=== PATIENT | male | born 1990 | race Caucasian/White ===

== ENCOUNTER 2017-02-18 16:33 | Emergency (ER) | payer MEDICARE, MEDICAID ==
[2017-02-18 16:54] VITALS: BP 166/92
--- NOTE | 2017-02-18 17:08 | UC ---
Respiratory Complaint HPI - HPI Summary HPI Summary: The patient comes in today for: 1. "I want an HIV test, Rx for my left bunion, and cough/dyspnea." Onset: Bunion: 4 years ago. Cough: 1 month. Palliative/provocative: ODETTE bandage helps bunion. Cough syrup helps the cough. Quality: Tearing sensation of the bunion. No pain with the cough. Region: Left foot and lungs. Severity: 8/10 though he appears much less--more like 4/10 Time: Comes and goes. Associated symptoms: Fevers: None. Cough production: None. He does not have any chest pain at this time. Dyspnea at this time--none. Rhinitis: None. * - History of Current Complaint Chief Complaint: UCGeneralIllness Stated Complaint: RESP COMPLAINT Time Seen by Provider: 02/18/17 16:49 Hx Obtained From: Patient - Allergies/Home Medications Allergies/Adverse Reactions: Allergies Allergy/AdvReac Type Severity Reaction Status Date / Time Doxycycline Allergy Intermediate Rash Verified 02/18/17 16:55 Home Medications: Home Medications Lurasidone HCl [Latuda] 60 mg PO DAILY 02/18/17 [History Confirmed 02/18/17] PMH/Surg Hx/FS Hx/Imm Hx Previously Healthy: No - Schizoaffective disorder. Endocrine History Of: Denies: Diabetes, Thyroid Disease, Hyperthyroidism, Hypothyroidism, Dyslipidemia Cardiovascular History Of: Denies: Cardiac Disorders, Hypertension, Pacemaker/ICD, Myocardial Infarction , Congestive Heart Failure, Atrial Fibrillation, Deep Vein Thrombosis, Bleeding Disorders Respiratory History Of: Denies: COPD, Asthma, Bronchitis, Pneumonia, Pulmonary Embolism GI/ History Of: Denies: Gastroesophageal Reflux, Ulcer, Gastrointestinal Bleed, Gall Bladder Disease, Kidney Stones, Diverticulitis, Renal Disease, Urosepsis Neurological History Of: Denies: TIA, CVA, Dementia, Seizures, Migraine Psychological History Of: Reports: Anxiety, Depression, Schizophrenia Denies: Bipolar Disorder, Post Traumatic Stress Disorder Cancer History Of: Denies: Lung Cancer, Colorectal Cancer, Breast Cancer, Prostate Cancer, Cervical Cancer Other History Of: Negative For: HIV, Hepatitis B, Hepatitis C, Anticoagulant Therapy - Surgical History Surgical History: Yes Surgery Procedure, Year, and Place: LEFT FOOT LESION REMOVED - Family History Known Family History: Positive: Hypertension Negative: Cardiac Disease - Social History Occupation: Employed Full-time Alcohol Use: Weekly Substance Use Type: None, Other Smoking Status (MU): Heavy Every Day Tobacco Smoker Type: Smokeless Tobacco Length of Time of Smoking/Using Tobacco: 5 years Have You Smoked in the Last Year: Yes Review of Systems Constitutional: Negative Skin: Negative Eyes: Negative ENT: Negative Respiratory: Cough Cardiovascular: Negative Gastrointestinal: Negative Genitourinary: Negative All Other Systems Reviewed And Are Negative: Yes Physical Exam Triage Information Reviewed: Yes Appearance: Well-Appearing, No Pain Distress, Well-Nourished Vital Signs: Initial Vital Signs Temp 97.1 F 02/18/17 16:46 Pulse 94 02/18/17 16:46 Resp 20 02/18/17 16:46 BP 166/92 02/18/17 16:46 Pulse Ox 97 02/18/17 16:46 Vital Signs Reviewed: Yes Eyes: Positive: Conjunctiva Clear. Negative: Discharge ENT: Positive: Hearing grossly normal. Negative: Pharyngeal erythema, Nasal congestion, Nasal drainage, TM bulging, TM dull, TM red, Tonsillar swelling, Tonsillar exudate Dental: Negative: Gross Decay/Caries @, Dental Fracture @ Neck: Positive: Supple, Nontender, No Lymphadenopathy. Negative: Nuchal Rigidity Respiratory: Positive: Lungs clear, No respiratory distress, No accessory muscle use. Negative: Crackles, Wheezing Cardiovascular: Positive: RRR, No Murmur Abdomen Description: Positive: Nontender, No Organomegaly, Soft. Negative: Distended, Guarding Musculoskeletal: Positive: Strength Intact, ROM Intact, No Edema, Other: - The left foot showed no signs of redness, tenderness or edema to exam. There was no hypertrophy of the MP joint of the first toe. Neurological: Positive: Alert, Muscle Tone Normal Psychological: Positive: Age Appropriate Behavior, Consolable Skin: Negative: rashes, breakdown UC Diagnostic Evaluation - Laboratory O2 Sat by Pulse Oximetry: 97 Respiratory Course/Dx - Course Course Of Treatment: Patient was told of his treatment options. His health insurance, he thinks, will cover Robitussin with codeine, but the codeine interacts with his psych medications. He was told this and at this time, he does not want to try other medications for his cough. He states that Tylenol with codeine helped his foot pain, but he was reminded that the codeine of Tylenol #3 is the same as with his cough medications and had adverse drug interactions. He states that he tolerates the ibuprofen and wanted to try that. He was told that this may increase his lithium level and he should use the least amount of it as needed. And if he has any problems, to stop it and see his psych provider. He said that without the codeine, he did not want any medications for his cough. - Differential Dx/Diagnosis Provider Diagnoses: Foot pain (resolved at this time). Cough (resolved at this time). HiV testing request. Discharge - Discharge Plan Condition: Stable Disposition: HOME Patient Education Materials: Arthralgia (ED) Referrals: Fabian Mesa MD [Medical Doctor] - 1 Week (Please see your primary care provider next week to see how well you are doing. If you get worse, please be seen sooner.)
--- NOTE | 2017-02-19 18:43 | UC ---
Progress - Progress Note Progress Note: A nurse gives me a note dated 02-19-17 stating that the patient wants Tylenol #3 for reasons that are not stated. He was seen yesterday and was complaining of a bunion which was non-tender and a cough which he did not have when I was in the room with him. IT is not clear why from this note why he wants the Tylenol #3 and the codeine interacts adversely with his psych medications. If he is having problems with pain control, he will need to come back in to be re-evaluated as he did not have pain problems last night.
== END 2017-02-18 17:39 | disposition home or self-care (01) ==
LOC: UCEAST 16:33
DX: R05 Cough (principal); M79.672 Pain in left foot; F41.9 Anxiety disorder, unspecified; F32.9 Major depressive disorder, single episode, unspecified; F20.9 Schizophrenia, unspecified; Z88.1 Allergy status to other antibiotic agents; F17.210 Nicotine dependence, cigarettes, uncomplicated
CPT/HCPCS: 99201; G0463

== ENCOUNTER 2017-10-25 15:30 | Inpatient (IN) | payer MEDICARE, MEDICAID ==
[2017-10-25 16:14] LABS: ABS Basophils 0 10^3/ul (0-0.2); ABS Eosinophils 0.1 10^3/ul (0-0.6); ABS Lymphocytes 1.5 10^3/ul (1.0-4.8); ABS Monocytes 0.5 10^3/ul (0-0.8); ABS Neutrophils 4.1 10^3/ul (1.5-7.7); ABS Nucleated RBC 0 10^3/ul; Hematocrit 43 % (42-52); Hemoglobin 15.6 g/dl (14.0-18.0); Lymphocyte % 24.3 % (25-47); Mean Corpuscular HGB Conc 36 g/dl (31-36); Mean Corpuscular Hemoglobin 32 pg (27-31); Mean Corpuscular Volume 89 fL (80-94); Mean Platelet Volume 8 um3 (7.4-10.4); Nucleated Red Blood Cells % 0.1; Platelet Count 289 10^3/ul (150-450); Red Blood Count 4.81 10^6/ul (4.0-5.4); Red Cell Distribution Width 12 % (10.5-15); White Blood Count 6.2 10^3/ul (3.5-10.8)
--- NOTE | 2017-10-25 17:47 | ED ---
Psychiatric Complaint - HPI Summary HPI Summary: Patient here with acute on chronic mood disorder. He has bipolar disorder and schizoaffective disorder for which Zyprexa. Follows w/ Dr. Power through [facility]. No change in meds as of late. He's been feeling "unsafe" over the past few months - reports this started around July 2017. He does admit he feels worse in the winter months in general - has not had his vitamin D level checked that he is aware of nor does he take a supplement. He currently lives alone however does visit his parents frequently - they all share a dog together. 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 Admits he was worse during school shut down over recent break due to lack of interaction and daily structure/ purpose. Denies SI or HI and no visual or auditory hallucinations- simply reports he doesn't feel he can trust anyone. He does admit to substance abuse - his drug of choice is nicotine. Currently smokes 10 cigarettes per day. Denies any other substance abuse. Patient reports no knows he is here at this time and he would like to keep it that way until he is ready to call his parents. - History Of Current Complaint Chief Complaint: EDMentalHealth Time Seen by Provider: 10/25/17 15:51 Hx Obtained From: Patient - Allergies/Home Medications Allergies/Adverse Reactions: Allergies Allergy/AdvReac Type Severity Reaction Status Date / Time Doxycycline Allergy Intermediate Rash Verified 06/29/17 13:24 Home Medications: Home Medications FLUoxetine CAP* [PROzac CAP*] 10 mg PO DAILY 10/25/17 [History Confirmed ] OLANzapine TAB* [Zyprexa 10 MG TAB*] 20 mg PO DAILY 10/25/17 [History Confirmed 10/25/17] Topiramate TAB(*) [Topamax 25 MG tab] 25 mg PO BID 10/25/17 [History Confirmed 10/25/17] Zolpidem TAB* [Ambien TAB*] 10 mg PO BEDTIME PRN 10/25/17 [History Confirmed ] clonazePAM TAB(*) [KlonoPIN TAB(*)] 1 mg PO BEDTIME PRN 10/25/17 [History Confirmed 10/25/17] PMH/Surg Hx/FS Hx/Imm Hx Previously Healthy: Yes Endocrine/Hematology History: Denies: Hx Anticoagulant Therapy, Hx Diabetes, Hx Thyroid Disease Cardiovascular History: Denies: Hx Congestive Heart Failure, Hx Deep Vein Thrombosis, Hx Hypertension , Hx Myocardial Infarction, Hx Pacemaker/ICD Respiratory History: Reports: Hx Seasonal Allergies Denies: Hx Asthma, Hx Chronic Obstructive Pulmonary Disease (COPD), Hx Lung Cancer, Hx Pneumonia, Hx Pulmonary Embolism GI History: Denies: Hx Gall Bladder Disease, Hx Gastrointestinal Bleed, Hx Ulcer, Hx Urosepsis History: Denies: Hx Dialysis, Hx Kidney Stones, Hx Renal Disease Musculoskeletal History: Reports: Hx Orthopedic Injury - Left Foot, Other Musculoskeletal History Sensory History: Reports: Hx Contacts or Glasses Denies: Hx Hearing Aid Opthamlomology History: Reports: Hx Contacts or Glasses Neurological History: Denies: Hx Dementia, Hx Migraine, Hx Seizures, Hx Transient Ischemic Attacks (TIA) Psychiatric History: Reports: Hx Anxiety, Hx Depression, Hx Community Mental Health Tx, Hx Schizophrenia, Hx Bipolar Disorder Denies: Hx Panic Disorder, Hx of Violent Episodes Against Others - Surgical History Surgery Procedure, Year, and Place: LEFT FOOT LESION REMOVED Hx Anesthesia Reactions: No Infectious Disease History: No Infectious Disease History: Denies: Hx Clostridium Difficile, Hx Hepatitis, Hx Human Immunodeficiency Virus (HIV), Hx of Known/Suspected MRSA, Hx Shingles, Hx Tuberculosis, Hx Known/ Suspected VRE, Hx Known/Suspected VRSA, History Other Infectious Disease, Traveled Outside the [place] in Last 30 Days - Family History Known Family History: Positive: Hypertension Negative: Cardiac Disease - Social History Occupation: Employed Full-time Lives: Alone Alcohol Use: None Substance Use Type: Reports: Marijuana - does not comment on this today Smoking Status (MU): Current Every Day Smoker Type: Smokeless Tobacco Amount Used/How Often: 10 cigs per day Length of Time of Smoking/Using Tobacco: 5 years Have You Smoked in the Last Year: Yes Review of Systems Constitutional: Negative Eyes: Negative ENT: Negative Cardiovascular: Negative Respiratory: Negative Gastrointestinal: Negative Positive: no symptoms reported Musculoskeletal: Negative Skin: Negative Neurological: Negative Psychological: Other - "unsafe" - no SI/HI All Other Systems Reviewed And Are Negative: Yes Physical Exam Triage Information Reviewed: Yes Vital Signs On Initial Exam: Initial Vitals Temp Pulse Resp BP Pulse Ox 98.4 F 134 18 158/89 98 10/25/17 15:33 10/25/17 15:33 10/25/17 15:33 10/25/17 15:33 10/25/17 15:33 Vital Signs Reviewed: Yes Appearance: Positive: Well-Appearing, No Pain Distress, Obese Skin: Positive: Warm, Skin Color Reflects Adequate Perfusion, Dry Head/Face: Positive: Normal Head/Face Inspection Eyes: Positive: Normal, EOMI, ANTONIO, Conjunctiva Clear ENT: Positive: Normal ENT inspection, Hearing grossly normal. Negative: Pharynx normal - oral mucosa dry, Nasal congestion Neck: Positive: Supple Respiratory/Lung Sounds: Positive: Clear to Auscultation, Breath Sounds Present Cardiovascular: Positive: Normal, RRR, S1, S2 Abdomen Description: Positive: Nontender, Soft Bowel Sounds: Positive: Present Musculoskeletal: Positive: Normal, Strength/ROM Intact Neurological: Positive: Normal, Sensory/Motor Intact, Alert, Oriented to Person Place, Time, CN Intact II-III Psychiatric: Positive: Other - Low mood, flat affect - denies SI HI Diagnostics - Vital Signs Vital Signs Temp Pulse Resp BP Pulse Ox 10/25/17 15:33 98.4 F 134 18 158/89 98 - Laboratory Lab Results: Lab Results 10/25/17 10/25/17 Range/Units 16:00 16:00 WBC 6.2 (3.5-10.8) 10^3/ul RBC 4.81 (4.0-5.4) 10^6/ul Hgb 15.6 (14.0-18.0) g/dl Hct 43 (42-52) % MCV 89 (80-94) fL MCH 32 H (27-31) pg MCHC 36 (31-36) g/dl RDW 12 (10.5-15) % Plt Count 289 (150-450) 10^3/ul MPV 8 (7.4-10.4) um3 Neut % (Auto) 66.2 (38-83) % Lymph % (Auto) 24.3 L (25-47) % [place] % (Auto) 8.1 (1-9) % Eos % (Auto) 1.0 (0-6) % Baso % (Auto) 0.4 (0-2) % Absolute Neuts (auto) 4.1 (1.5-7.7) 10^3/ul Absolute Lymphs (auto) 1.5 (1.0-4.8) 10^3/ul Absolute Monos (auto) 0.5 (0-0.8) 10^3/ul Absolute Eos (auto) 0.1 (0-0.6) 10^3/ul Absolute Basos (auto) 0 (0-0.2) 10^3/ul Absolute Nucleated RBC 0 10^3/ul Nucleated RBC % 0.1 Sodium 139 (133-145) mmol/L Potassium 3.6 (3.5-5.0) mmol/L Chloride 107 (101-111) mmol/L Carbon Dioxide 21 L (22-32) mmol/L Anion Gap 11 (2-11) mmol/L BUN 10 (6-24) mg/dL Creatinine 1.03 (0.67-1.17) mg/dL Est GFR ( Amer) 110.6 (>60) Est GFR (Non-Af Amer) 86.0 (>60) BUN/Creatinine Ratio 9.7 (8-20) Glucose 146 H (70-100) mg/dL Calcium 10.1 (8.6-10.3) mg/dL Total Bilirubin 0.40 (0.2-1.0) mg/dL AST 25 (13-39) U/L ALT 42 (7-52) U/L Alkaline Phosphatase 90 (34-104) U/L Total Protein 7.6 (6.4-8.9) g/dL Albumin 4.6 (3.2-5.2) g/dL Globulin 3.0 (2-4) g/dL Albumin/Globulin Ratio 1.5 (1-3) TSH 1.37 (0.34-5.60) mcIU/mL Salicylates < 2.50 (<30) mg/dL Acetaminophen < 15 mcg/mL Serum Alcohol < 10 (<10) mg/dL Result Diagrams: 10/25/17 16:00 10/25/17 16:00 Lab Statement: Any lab studies that have been ordered have been reviewed, and results considered in the medical decision making process. Course/Dx - Course Course Of Treatment: Patient presents with acute on chronic mood disorder w/o SI /HI. Labs are unremarkable for acute pathology triggering these symptoms. He is medically cleared for mental health evaluation. UPDATE: WILL BE ADMITTED TO [facility]. Pt in stable condition at time of transition. NOTE: Vitamin D is lower end of normal. Pt may benefit from supplement to replace this level and follow- up with labs. This may be appropriate as a routine tx for him during the winter months moving forward, but labs would best indicate his need. - Differential Dx/Clinical Impression Provider Diagnosis: Schizoaffective disorder, Bipolar disorder, Vitamin D deficiency Discharge - Discharge Plan Condition: Stable [place] [place] Materials: Vitamin D Deficiency (ED)
[2017-10-25 18:46] LABS: Urine Appearance Clear; Urine Blood 1+ (Negative); Urine Color Yellow; Urine Ketones Negative (Negative); Urine Protein Negative (Negative); Urine Specific Gravity 1.006 (1.010-1.030); Urine Urobilinogen Negative (Negative)
[2017-10-25] MEDS ORDERED: Ibuprofen TAB* 600 MG PO PRN (21:00)
[2017-10-25] MEDS ORDERED: Mouth Piece, Nicotine* 1 EACH CARTRIDGE INH ONE (23:00)
[2017-10-25] MEDS ORDERED: Nicotine GUM* 2 MG PO PRN (23:27)
[2017-10-25] MEDS ORDERED: Acetaminophen TAB* 325 MG PO PRN (23:27)
[2017-10-25] MEDS ORDERED: Al Hydrox/Mg Hydrox/Simet LIQ* 30 ML UDC PO PRN (23:27)
[2017-10-25] MEDS ORDERED: traZODone TAB* 50 MG TAB PO PRN (23:30)
[2017-10-26] MEDS: OLANzapine TAB* 10 MG PO SCH ×2 (03:15→20:16)
[2017-10-26] MEDS: Topiramate TAB(*) 25 MG PO SCH ×3 (03:16→20:16)
[2017-10-26] MEDS: Vitamin THERAPEUTIC TAB PO SCH (08:31)
--- NOTE | 2017-10-26 12:55 | PN ---
[facility]: Group Therapy Note - Service Type Service Type: [id number] Group Psychotherapy - Cognitive Behavioral Group Therapy ( CBT):Patient was attentive and participatory in CBT programming this morning, and remained in good behavioral control. Patient expressed positive insights regarding relevant treatment interventions and goals.
[2017-10-26] MEDS: lamoTRIgine TAB(*) 25 MG PO SCH (13:10)
[2017-10-26] MEDS: Nicotine Inhaler* 10 MG AMP INH PRN ×2 (13:13→20:17)
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
[2017-10-27] MEDS: lamoTRIgine TAB(*) 25 MG PO SCH (08:56)
[2017-10-27] MEDS: Vitamin THERAPEUTIC TAB PO SCH (08:56)
[2017-10-27] MEDS: Nicotine Inhaler* 10 MG AMP INH PRN ×2 (08:57→15:53)
[2017-10-27] MEDS: Topiramate TAB(*) 25 MG PO SCH ×2 (08:57→20:25)
--- NOTE | 2017-10-27 14:10 | PN ---
Subjective - Subjective Date of Service: 10/27/17 Service Type: 35602 Hosp care 15 min low complexity Subjective: Jas reports that he is tolerating the addition of lamotrigine well and denies side effects. He still appears to be isolative with some difficulty communicating his thoughts in a relatable fashion. He denies SI or HI and does request discharge tomorrow, stating that he feels bad for missing work. He is interested in substance abuse follow up, in addition to f/u in the community following discharge. Objective - Appearance Appearance: Obese Dysmorphic Features: No Hygiene: Normal Grooming: Well Kept - Behavior Psychomotor Activities: Normal Exhibits Abnormal Movement: No - Attitude and Relatedness Attitude and Relatedness: Withdrawn Eye Contact: Fair - Speech Quality: Unpressured Latencies: Normal Quantity: Terse - Mood Patient's Decription of Mood: "Okay" - Affect Observed Affect: Unvariable Affect Consistent with: Euthymia - Thought Process Patient's Thought Process: Coherent Thought Content: No Passive Wish, No Suicidal Planning, No Homicidal Ideation, No Paranoid Ideation - Sensorium Experiencing Hallucinations: No, Sensorium is Clear Type of Hallucinations: Visual: No, Auditory: No, Command: No - Level of Consciousness Level of Consciousness: Alert Orientation: Yes Intact, Yes Orientated to Time, Yes Orientated to Place, Yes Orientated to Person - Impulse Control Impulse Control: Tenuous - Insight and Judgement Insight and Judgement: Fair - Group Participation Particating in Group Activities: Yes - Medication Management Medication Management Adherence: Yes Assessment - Assessment Merits Inpatient Hospitalization: Consolidate Improvements, Pending Safe DC Plan Inpatient DSM-IV Dx: Schizoaffective DO, Bipolar Type Clinical Impression: 27 y.o. single, white male with a history of schizoaffective DO, Bipolar type and polysubstance use disorder (cocaine, ketamine, dextromethorphan, cannabis, alcohol, opioids) in brief remission who is self-referred for voluntary admission secondary to increasing symptoms of bipolar depression and vague SI. Plan - Plan Treatment Plan: Name: JAS LAMBERT Birthdate: 1990 [id number] The patient is on olanzapine 10mg PO BID and topiramate 25mg PO BID. We have discontinued fluoxetine in favor of a trial of lamotrigine 50mg PO qday, which he is tolerating well. The patient continues to deny SI and is requesting d/c tomorrow (10/28). Continued Medication Management: Different Medication Medications: Current Medications Acetaminophen (Tylenol Tab*) 650 mg PO Q4H PRN PRN Reason: PAIN or TEMP > 101 F Al Hydrox/Mg Hydrox/Simethicone (Maalox Plus*) 30 ml PO Q4H PRN PRN Reason: INDIGESTION Ibuprofen (Motrin Tab*) 600 mg PO Q6H PRN PRN Reason: PAIN Lamotrigine (Lamictal Tab(*)) 50 mg PO DAILY [facility] Last Admin: 10/27/17 08:56 Dose: 50 mg Multivitamins (Theragran Tab*) 1 tab PO DAILY [facility] Last Admin: 10/27/17 08:56 Dose: 1 tab Nicotine (Nicotine Inhaler*) 10 mg INH Q2H PRN PRN Reason: CRAVING Last Admin: 10/27/17 08:57 Dose: 10 mg Nicotine Polacrilex (Nicotine Gum*) 2 mg PO Q2H PRN PRN Reason: CRAVING Last Admin: 10/26/17 13:13 Dose: 2 mg Topiramate (Topamax(*)) 25 mg PO BID [facility] Last Admin: 10/27/17 08:57 Dose: 25 mg Trazodone HCl (Desyrel Tab*) 50 mg PO BEDTIME PRN PRN Reason: INSOMNIA - Discharge Plan Discharge Plan: Outpatient Follow Up Outpatient Program: [facility] Lab Results - Lab Results Lab Results: 10/27/17 10/27/17 09:24 09:24 Hemoglobin A1c 5.4 Triglycerides 162 Cholesterol 197 LDL Cholesterol 137 HDL Cholesterol 27.6
[2017-10-27] MEDS: OLANzapine TAB* 10 MG PO SCH (20:25)
[2017-10-28] MEDS: OLANzapine TAB* 10 MG PO SCH (08:18)
[2017-10-28] MEDS: lamoTRIgine TAB(*) 25 MG PO SCH (08:18)
[2017-10-28] MEDS: Vitamin THERAPEUTIC TAB PO SCH (08:18)
[2017-10-28] MEDS: Topiramate TAB(*) 25 MG PO SCH (08:18)
[2017-10-28 08:31] VITALS: BP 105/49
[2017-10-28] MEDS: Nicotine Inhaler* 10 MG AMP INH PRN (10:13)
--- NOTE | 2017-10-28 11:30 | PN ---
[facility]: Group Therapy Note - Service Type Service Type: 71352 Group Psychotherapy - Cognitive Behavioral Group Therapy ( CBT):Patient was attentive and participatory in CBT programming this morning, and remained in good behavioral control. Patient expressed positive insights regarding relevant treatment interventions and goals.
--- NOTE | 2017-10-28 23:22 | DS ---
CC: Dr. Debora Power, [facility] * DISCHARGE SUMMARY: DATE OF ADMISSION: 10/25/17 DATE OF DISCHARGE: 10/28/17 DISCHARGE DIAGNOSES: Are as follows: Empire I: Schizoaffective disorder, bipolar type; polysubstance use disorder in brief remission (cocaine, alcohol, ketamine, cannabis, dextromethorphan, LSD, and opioids). Empire II: Deferred. Empire III: None. Empire IV: Moderate primary support stressors. Empire V: At the time of admission was 40 and at the time of discharge is 60. CONDITION AT THE TIME OF DISCHARGE: Improved. The patient is euthymic. He has been going to groups, more social with peers, more communicative. He is tolerating the introduction of lamotrigine well and appears to be less depressed. He is agreeable with continuing this on an outpatient basis and continuing to follow up in the community at [facility]. The patient is also recognizing that substances of abuse are playing a negative role in his life and he is willing to seek assessment at the [facility] here in [facility]. The patient has been safe on all checks. He has denied suicidal ideations throughout this hospitalization. 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 We have given him an employment note due to his absence while hospitalized. I have spoken with his mother, Khurram, who is in agreement with the discharge plan. MENTAL STATUS EXAMINATION AT THE TIME OF DISCHARGE: The patient is an overweight white male who is clean and well-groomed with good posture, fairly good eye contact. He is easy to establish a rapport with. Mood is euthymic with somewhat flattened affect. Speech has a normal rate, tone and volume. Thought process is linear and goal directed. Thought content is significant for his desire to be discharged from the hospital and return to work. He is denying suicidal or homicidal ideations. He denies auditory or visual hallucinations. There is no current evidence of psychotic thinking. Insight and judgment are fair given his willingness to follow up not only with mental health, but also substance abuse treatment in the community. Cognitively, he is awake and alert with what would appear to be an average intellect. LABORATORY DATA: The patient's metabolic studies were gathered on 10/27/17. Hemoglobin A1c is 5.4, cholesterol 197, triglycerides 162, LDL is 137, and HDL is 27.6. DISCHARGE INSTRUCTIONS TO THE PATIENT: Are as follows: A. Medications: The patient takes: 1. Lamotrigine 50 mg p.o. daily. 2. Klonopin 1 mg p.o. q.h.s. as a p.r.n. for insomnia. 3. Ibuprofen 800 mg every 8 hours as a p.r.n. for pain. 4. Ambien 10 mg p.o. q.h.s. as a p.r.n. for insomnia. 5. Topamax 25 mg p.o. b.i.d. 6. Olanzapine 10 mg p.o. b.i.d. B. Diet: Regular. C. Activities: As tolerated. The patient is offered continuing nicotine replacement therapy; however, he is declining this, indicating his preference to continue smoking cigarettes for the time being. In the event that he changes his mind, he is given the [facility] Smokers' Quitline, which is a toll free number at [phone]. There are no laboratory or diagnostic studies pending at this time. D. Followup care: The has a followup with therapist, Bogdan Bonilla on 11/02/17. He also has his next appointment with his psychiatrist, Dr. Debora Power, on , 11/04/17. E. Substance abuse followup: The patient was [facility]. He has his intake scheduled for 11/01/17 and he is expressing willingness to follow through with this. HOSPITAL COURSE: Part A: Reason for admission: The patient is a 27-year-old single white male with a history of schizoaffective disorder and polysubstance abuse, who arrives to the emergency room via his own motor vehicle following a breakup with his girlfriend stating, "I am so depressed, I began to feel suicidal." The patient states that he does not feel healthy and reports that may be his medications were no longer working. He presented with a depressed flat affect with a slow rate of speech and endorsed feeling "angry quite often. " The patient further stated that he felt the people did not like him and that in response he "hates people." When I met with him, he was calm and cooperative. He endorsed history in which he was briefly off Zyprexa during the summer due to experiencing weight gain on this medication. He was also taken off of lithium around the same time and switched to lurasidone. As a result, he reports that he was manic, spending money that he did not have and using drugs such as ketamine, cocaine, cannabis, alcohol, cough syrup, and LSD. During that period, he got hooked up with a girlfriend in the community who apparently has mental health issues herself and she was a motivator for many of his substance abuse behaviors at that time. The patient was not hospitalized for that event, but he was taken back off Latuda and Zyprexa was reintroduced. Unfortunately, the patient endorses feeling depressed, getting depressed some time around July of 2017. This was followed by several weeks of missing work because he is an employee of [employer] and the students were home for winter. The patient did alert Dr. Power to his recent depressive episode and was apparently placed on a low dose of fluoxetine ; however, he states that this was ineffective. Symptomatically, he did endorse several neuro-vegetative symptoms of depression such as hypersomnolence , poor motivation, anhedonia, guilt over smoking too many cigarettes, poor energy, poor concentration and some vague suicidal ideations without plan. When I asked him more specifically about suicide, he denied any current thoughts , but did indicate that there were times over the past several weeks where vague ideas of perhaps hanging himself popped into his head. I also asked him about homicidality, which he initially denied, but later admitted that he had some thoughts of hurting his recent girlfriend as well as the other man whom she has been dating, who is also a well known consumer of mental health services in the community. The patient strongly denied any intention of taking action on those thoughts and he denied specific plans to harm anyone. I did speak with his mother, Khurram for collateral information. She felt that missing work at [employer] had resulted in fewer social interactions and she attributed his depression to that factor. She did acknowledge that the patient does not always get along with his father because she describes his father as "very negative." Part B: Psychiatric treatment rendered: The patient was admitted to the adult behavioral health unit where he was placed on q.15 minute checks for his own safety. He was placed back on all of his medications including olanzapine and Topamax; however, his Klonopin was held in favor of hydroxyzine and similarly Ambien withheld in favor of trazodone as these are not controlled substances. We did discontinue fluoxetine in favor of a trial of lamotrigine started at 25 mg and then increased to 50 mg p.o. daily. The patient was educated about theoretical risks involving a serious rash and educated to inspect his skin and report back to Dr. Power or other healthcare providers in the event that any rash formed. The patient was an active participant in milieu programming. He went to groups. He was social with peers, although not necessarily outgoing. The patient tolerated lamotrigine well and he never showed any evidence of psychotic thinking which has been a problem during past hospitalization cycles. Instead, he was reality focused, but moderately depressed. This improved with mood stabilizer treatment and he did well enough to where he started requesting discharge on the 10/27/17. We negotiated and got him to agreed to stay an extra day, so that we could continue to observe him and he continued to deny suicidal or homicidal ideations thereafter. At this point, we feel that he is improved and that he is appropriately requesting discharge. His family is agreeable with this. One potentially significant outcome of this hospitalization is that Maximilian did express some insight into his substance abuse, although he denies any active abuse of substances for the past month. He does indicate that these have been extremely problematic and he was willing to seek treatment on an outpatient basis. His [facility] will be early next week at [facility]. At this time, we feel safe discharging the patient and his car is in the parking lot to provide him with transportation. He states that he plans to return to work as early as tomorrow. [id number]/[facility] #: [id number] ANA
== END 2017-10-28 13:36 | disposition home or self-care (01) | DRG 885 ==
LOC: ED 15:30 → BSU 23:06
PROVIDERS: ADMIT Psychiatry & Neurology Psychiatry; ATTEND Psychiatry & Neurology Psychiatry
PROC: GZHZZZZ Group Psychotherapy (ICD-10-PCS; principal; 2017-10-26)
DX: F25.0 Schizoaffective disorder, bipolar type (principal); R45.851 Suicidal ideations; F17.210 Nicotine dependence, cigarettes, uncomplicated; F41.9 Anxiety disorder, unspecified; J30.2 Other seasonal allergic rhinitis; F98.8 Other specified behavioral and emotional disorders with onset usually occurring in childhood and adolescence; Z62.819 Personal history of unspecified abuse in childhood; F14.11 Cocaine abuse, in remission; F10.11 Alcohol abuse, in remission; Y90.9 Presence of alcohol in blood, level not specified; F12.11 Cannabis abuse, in remission; F11.11 Opioid abuse, in remission; F16.11 Hallucinogen abuse, in remission; E66.9 Obesity, unspecified; F19.11 Other psychoactive substance abuse, in remission; R45.84 Anhedonia; Z88.1 Allergy status to other antibiotic agents; Z82.49 Family history of ischemic heart disease and other diseases of the circulatory system; Z81.8 Family history of other mental and behavioral disorders; Z68.34 Body mass index [BMI] 34.0-34.9, adult
CPT/HCPCS: 36415; 80053; 80061; 80307; 80320; 80329; 81003; 81015; 82306; 83036; 84443; 85025; 90853; 99222; 99231; 99238; A9270-GY; G0480

== ENCOUNTER 2017-12-20 21:17 | Emergency (ER) | payer MEDICARE, MEDICAID ==
[2017-12-20 21:30] VITALS: BP 149/101
[2017-12-20] MEDS ORDERED: HYDROcodone/ACETAMIN 5-325 MG* 1 TAB PO ONE (21:44)
--- NOTE | 2017-12-20 21:50 | ED ---
Medical Screening - HPI Summary HPI Summary: 27yo M with hx of mental health problems and chronic pain presents for medication refill/pain in the left leg. He states he sees pain management [employer]CHNICIAN Giovani and is Rx for Tylenol #3. He would like a prescription for that. He states he has been out since June. He has a pain management contract with him stating he is to only get Rx filled at [facility] and only by his physician. He describes no new injury. On review of iSTOP database he has not filled Tylenol #3 since June as stated. - History of Current Complaint Chief Complaint: UCMedRefill Stated Complaint: MED REFILL Time Seen by Provider: 12/20/17 21:29 PMH/Surg Hx/FS Hx/Imm Hx Endocrine/Hematology History: Denies: Hx Anticoagulant Therapy, Hx Diabetes, Hx Thyroid Disease Cardiovascular History: Denies: Hx Congestive Heart Failure, Hx Deep Vein Thrombosis, Hx Hypertension , Hx Myocardial Infarction, Hx Pacemaker/ICD Respiratory History: Reports: Hx Seasonal Allergies Denies: Hx Asthma, Hx Chronic Obstructive Pulmonary Disease (COPD), Hx Lung Cancer, Hx Pneumonia, Hx Pulmonary Embolism GI History: Denies: Hx Gall Bladder Disease, Hx Gastrointestinal Bleed, Hx Ulcer, Hx Urosepsis History: Denies: Hx Dialysis, Hx Kidney Stones, Hx Renal Disease Musculoskeletal History: Reports: Hx Orthopedic Injury - Left Foot, Other Musculoskeletal History Sensory History: Denies: Hx Contacts or Glasses, Hx Hearing Aid Opthamlomology History: Denies: Hx Contacts or Glasses Neurological History: Denies: Hx Dementia, Hx Migraine, Hx Seizures, Hx Transient Ischemic Attacks (TIA) Psychiatric History: Reports: Hx Anxiety, Hx Eating Disorder - used to make self throw up alot - 2007, Hx Depression, Hx Community Mental Health Tx, Hx Schizophrenia, Hx Bipolar Disorder Denies: Hx Panic Disorder, Hx of Violent Episodes Against Others - Surgical History Surgery Procedure, Year, and Place: LEFT FOOT LESION REMOVED Hx Anesthesia Reactions: No Infectious Disease History: No Infectious Disease History: Denies: Hx Clostridium Difficile, Hx Hepatitis, Hx Human Immunodeficiency Virus (HIV), Hx of Known/Suspected MRSA, Hx Shingles, Hx Tuberculosis, Hx Known/ Suspected VRE, Hx Known/Suspected VRSA, History Other Infectious Disease, Traveled Outside the [place] in Last 30 Days - Family History Known Family History: Positive: None, Hypertension Negative: Cardiac Disease - Social History Alcohol Use: None Alcohol Amount: HX ALCOHOLIC Substance Use Type: Reports: Marijuana Smoking Status (MU): Current Every Day Smoker Type: Smokeless Tobacco Amount Used/How Often: DOESN'T KEEP COUNT; ROLLS HIS OWN Length of Time of Smoking/Using Tobacco: 5 years Have You Smoked in the Last Year: Yes Review of Systems Constitutional: Negative Positive: Arthralgia, Myalgia Neurological: Negative Psychological: Other - controlled symptoms. No SI. All Other Systems Reviewed And Are Negative: Yes Physical Exam Triage Information Reviewed: Yes Vital Signs On Initial Exam: Initial Vitals Temp Pulse Resp BP Pulse Ox 36.1 C 79 18 149/101 99 12/20/17 21:25 12/20/17 21:25 12/20/17 21:25 12/20/17 21:25 12/20/17 21:25 Vital Signs Reviewed: Yes Appearance: Positive: Well-Appearing, No Pain Distress, Well-Nourished Skin: Positive: Warm, Dry Eyes: Positive: Normal Respiratory/Lung Sounds: Positive: Clear to Auscultation Cardiovascular: Positive: RRR Musculoskeletal: Positive: Strength/ROM Intact Neurological: Positive: Sensory/Motor Intact, Normal Gait Psychiatric: Positive: Affect/Mood Appropriate Diagnostics - Vital Signs Vital Signs Temp Pulse Resp BP Pulse Ox 12/20/17 21:25 36.1 C 79 18 149/101 99 - Laboratory Lab Statement: Any lab studies that have been ordered have been reviewed, and results considered in the medical decision making process. Course/Dx - Course Course Of Treatment: tx pt for pain here. Explained he will have to refill Rx from his pain management clinic and that he cannot be Rx here. He understood. Pt was truthful, Rx hx confirmed on iSTOP database. - Diagnoses Provider Diagnoses: Chronic pain of left lower extremity Discharge - Sign-Out/Discharge Documenting (check all that apply): Discharge - Discharge Plan Condition: Good Disposition: HOME Patient Education Materials: Chronic Pain (ED) Referrals: Stuart Gilman MD [Primary Care Provider] - Vicki Matute NP [Nurse Practitioner] - Additional Instructions: Call your pain management provider first thing in the morning. They are the only ones that may prescribe you pain medication. All pain medication will have to be filled at [facility] as per your pain management contract. Return if worse, new symptoms or other concerns as discussed. - Billing Disposition and Condition Condition: GOOD Disposition: HOME
== END 2017-12-20 22:05 | disposition home or self-care (01) ==
LOC: UCEAST 21:17
DX: G89.29 Other chronic pain (principal); M79.605 Pain in left leg; F17.210 Nicotine dependence, cigarettes, uncomplicated; Z76.0 Encounter for issue of repeat prescription
CPT/HCPCS: 99212; G0463

== ENCOUNTER 2018-02-27 16:40 | Emergency (ER) | payer MEDICARE, MEDICAID ==
[2018-02-27 17:06] VITALS: BP 127/85
--- NOTE | 2018-02-27 17:11 | ED ---
Psychiatric Complaint - HPI Summary HPI Summary: 28-year-old male on disability or schizophrenia presents with complaint of panic attacks. He states that he has a lot of social anxiety and gets panic attacks frequently. This is been going on for some time. He cannot specify further. He was hoping to have something for intermittent anxiety and trouble sleeping. He is already on Lamictal and Zyprexa for his psychiatric needs. He is seen through program called [facility] which handled his therapy and social work. He also sees Dr. Power for psychiatry but recently transitioned to . He is not able to get in to be seen until April 15. He has not discussed these concerns with his social work coordinator. He denies being a threat to himself or others. However, he recently got in trouble for false imprisonment and received a protection notice against an old girlfriend. He has been staying away as ordered and does not feel as though he is a threat to himself or this woman. - History Of Current Complaint Chief Complaint: UCGeneralIllness Time Seen by Provider: 02/27/18 16:49 Hx Obtained From: Patient - Allergies/Home Medications Allergies/Adverse Reactions: Allergies Allergy/AdvReac Type Severity Reaction Status Date / Time doxycycline Allergy Severe Rash Verified 02/27/18 16:49 Home Medications: Home Medications lamoTRIgine TAB(*) [Lamictal TAB(*)] 100 mg PO DAILY 02/27/18 [History Confirmed 02/27/18] PMH/Surg Hx/FS Hx/Imm Hx Previously Healthy: No - schizophrenia Endocrine/Hematology History: Denies: Hx Anticoagulant Therapy, Hx Diabetes, Hx Thyroid Disease Cardiovascular History: Denies: Hx Congestive Heart Failure, Hx Deep Vein Thrombosis, Hx Hypertension , Hx Myocardial Infarction, Hx Pacemaker/ICD Respiratory History: Reports: Hx Seasonal Allergies Denies: Hx Asthma, Hx Chronic Obstructive Pulmonary Disease (COPD), Hx Lung Cancer, Hx Pneumonia, Hx Pulmonary Embolism GI History: Denies: Hx Gall Bladder Disease, Hx Gastrointestinal Bleed, Hx Ulcer, Hx Urosepsis History: Denies: Hx Dialysis, Hx Kidney Stones, Hx Renal Disease Musculoskeletal History: Reports: Hx Orthopedic Injury - Left Foot, Other Musculoskeletal History Sensory History: Denies: Hx Contacts or Glasses, Hx Hearing Aid Opthamlomology History: Denies: Hx Contacts or Glasses Neurological History: Denies: Hx Dementia, Hx Migraine, Hx Seizures, Hx Transient Ischemic Attacks (TIA) Psychiatric History: Reports: Hx Anxiety, Hx Eating Disorder - used to make self throw up alot - 2008, Hx Depression, Hx Community Mental Health Tx, Hx Schizophrenia, Hx Bipolar Disorder Denies: Hx Panic Disorder, Hx of Violent Episodes Against Others - Surgical History Surgery Procedure, Year, and Place: LEFT FOOT LESION REMOVED Hx Anesthesia Reactions: No Infectious Disease History: No Infectious Disease History: Denies: Hx Clostridium Difficile, Hx Hepatitis, Hx Human Immunodeficiency Virus (HIV), Hx of Known/Suspected MRSA, Hx Shingles, Hx Tuberculosis, Hx Known/ Suspected VRE, Hx Known/Suspected VRSA, History Other Infectious Disease, Traveled Outside the [place] in Last 30 Days - Family History Known Family History: Positive: None, Hypertension Negative: Cardiac Disease - Social History Alcohol Use: None Alcohol Amount: HX ALCOHOLIC Substance Use Type: Reports: Marijuana Smoking Status (MU): Current Every Day Smoker Type: Smokeless Tobacco Amount Used/How Often: DOESN'T KEEP COUNT; ROLLS HIS OWN Length of Time of Smoking/Using Tobacco: 5 years Have You Smoked in the Last Year: Yes Review of Systems Skin: Negative Negative: Headache, Weakness Positive: Anxious, Depressed, Other - denies suicidal or homicidal ideation. Denies self-harm. All Other Systems Reviewed And Are Negative: Yes Physical Exam Triage Information Reviewed: Yes Vital Signs On Initial Exam: Initial Vitals Temp Pulse Resp BP Pulse Ox 99.2 F 115 20 127/85 99 02/27/18 16:50 02/27/18 16:50 02/27/18 16:50 02/27/18 16:50 02/27/18 16:50 Vital Signs Reviewed: Yes Appearance: Positive: Well-Appearing, No Pain Distress Skin: Positive: Warm, Dry Head/Face: Positive: Normal Head/Face Inspection Respiratory/Lung Sounds: Positive: Clear to Auscultation Cardiovascular: Positive: RRR Musculoskeletal: Positive: Normal, Strength/ROM Intact Neurological: Positive: Normal, Alert, Oriented to Person Place, Time Psychiatric: Positive: Other - Patient denies suicidal or homicidal ideation. Subjective anxiety without presence of anxiousness now. Flat affect. No positive symptoms observed. Diagnostics - Vital Signs Vital Signs Temp Pulse Resp BP Pulse Ox 02/27/18 16:50 99.2 F 115 20 127/85 99 - Laboratory Lab Statement: Any lab studies that have been ordered have been reviewed, and results considered in the medical decision making process. Course/Dx - Course Course Of Treatment: Patient requesting as needed medication for panic attack/ anxiety and sleep. I discussed with him that I would give him a limited amount of Vistaril and that any controlled substance would have to be written by his psychiatrist. He is also suggested to use his outpatient resources to communicate his needs. He'll call them first thing in the morning. He is instructed to try and get an appointment with his psychiatrist more quickly. He is explained that any further psychiatric issues are best served in the ER if he cannot be seen in the therapist or psychiatrist setting. - Differential Dx/Clinical Impression Differential Diagnosis/HQI/PQRI: Positive: Other - Schizophrenia, anxiety disorder, social anxiety, anxiety reactions, suicidal/homicidal ideation Provider Diagnosis: Schizoaffective disorder, bipolar type, Anxiety reaction Discharge - Sign-Out/Discharge Documenting (check all that apply): Discharge/Admit/Transfer - Discharge Plan Condition: Good Disposition: HOME Prescriptions: hydrOXYzine pamoate [Vistaril] 50 mg PO TID PRN #30 capsule PRN Reason: Anxiety Patient Education Materials: Social Anxiety Disorder (ED), Anxiety (ED) Referrals: Mele LI,Que Zambrano [Medical Doctor] - Stuart Gilman MD [Primary Care Provider] - Additional Instructions: Call or social work coordinator at [facility] in the morning to schedule follow-up. See if they can get urine for a sooner appointment with your psychiatrist. Go to the ER if you feel as though urine crisis, current threat to herself or others or have other concerns. - Billing Disposition and Condition Condition: GOOD Disposition: HOME
== END 2018-02-27 17:10 | disposition home or self-care (01) ==
LOC: UCEAST 16:40
DX: F20.9 Schizophrenia, unspecified (principal); F31.9 Bipolar disorder, unspecified; F41.1 Generalized anxiety disorder; Z88.1 Allergy status to other antibiotic agents; F17.290 Nicotine dependence, other tobacco product, uncomplicated
CPT/HCPCS: 99212; G0463

== ENCOUNTER 2018-02-28 14:34 | Inpatient (IN) | payer MEDICARE, MEDICAID ==
[2018-02-28 15:26] LABS: ABS Basophils 0 10^3/ul (0-0.2); ABS Eosinophils 0.1 10^3/ul (0-0.6); ABS Lymphocytes 1.1 10^3/ul (1.0-4.8); ABS Monocytes 0.8 10^3/ul (0-0.8); ABS Neutrophils 7.1 10^3/ul (1.5-7.7); ABS Nucleated RBC 0 10^3/ul; Eosinophil % 0.7 % (0-6); Hematocrit 48 % (42-52); Hemoglobin 16.5 g/dl (14.0-18.0); Lymphocyte % 12.2 % (25-47); Mean Corpuscular HGB Conc 35 g/dl (31-36); Mean Corpuscular Hemoglobin 32 pg (27-31); Mean Corpuscular Volume 92 fL (80-94); Nucleated Red Blood Cells % 0; Platelet Count 274 10^3/ul (150-450); Red Blood Count 5.16 10^6/ul (4.0-5.4); Red Cell Distribution Width 13 % (10.5-15); White Blood Count 9.2 10^3/ul (3.5-10.8)
[2018-02-28 15:45] LABS: EGFR Non-African American 80.8 (>60)
[2018-02-28 16:34] LABS: Urine Appearance Clear; Urine Blood 2+ (Negative); Urine Color Yellow; Urine Ketones Negative (Negative); Urine Protein Negative (Negative); Urine Specific Gravity 1.006 (1.010-1.030); Urine Urobilinogen Negative (Negative)
--- NOTE | 2018-02-28 19:27 | ED ---
Sivakumar Kevin Angela, scribed for Laron Wheatley MD on 02/28/18 at 1556 . Psychiatric Complaint - HPI Summary HPI Summary: This pt is a 28 y/o male, accompanied by his mother, [place] [facility] [place] depression and SI thoughts. Pt reports he has felt paranoid recently thinking people are following him. He also states "I don't really want to be alive." Denies SI plan. He notes he has had these thoughts for 10-12 years now. Per mother, pt has been intermittently depressed. Mother reports a couple of days ago pt had a rope and stated he was going to put it around his neck, as well as stated he wanted to shoot himself. Pt admits to alcohol, tobacco, and marijuana use. Additionally per mother, pt has more stress and is worried because he has to go to court in 4 days. Mother notes the pt was [place] [facility] [place] and was placed on Prozac but it was discontinued as this medication made the pt gain weight. Pt was changed to Latuda about 1.5 years ago. Per mother "since then the pt has been going down hill, he was much happier before." Pt is currently on Zyprexa, prescribed by Dr. Power. - History Of Current Complaint Chief Complaint: EDMentalHealth Time Seen by Provider: 02/28/18 15:02 Hx Obtained From: Patient Onset/Duration: Lasting Days, Still Present Timing: Days Severity Currently: Moderate Character: Manic Aggravating Factor(s): Nothing Alleviating Factor(s): Nothing Associated Signs And Symptoms: Positive: Paranoid Behavior Related History: Positive For: Prior Psychiatric Issues - depression Has Suicidal: Reports: Thoughts. Denies: With A Plan Has Homicidal: Denies: Thoughts, With A Plan - Allergies/Home Medications Allergies/Adverse Reactions: Allergies Allergy/AdvReac Type Severity Reaction Status Date / Time doxycycline Allergy Severe Rash Verified 02/28/18 14:52 Home Medications: Home Medications Valerian Root [Valerian Root Sleep Restf] 100 mg PO DAILY 02/28/18 [History Confirmed 02/28/18] PMH/Surg Hx/FS Hx/Imm Hx Endocrine/Hematology History: Denies: Hx Anticoagulant Therapy, Hx Diabetes, Hx Thyroid Disease Cardiovascular History: Denies: Hx Congestive Heart Failure, Hx Deep Vein Thrombosis, Hx Hypertension , Hx Myocardial Infarction, Hx Pacemaker/ICD Respiratory History: Reports: Hx Seasonal Allergies Denies: Hx Asthma, Hx Chronic Obstructive Pulmonary Disease (COPD), Hx Lung Cancer, Hx Pneumonia, Hx Pulmonary Embolism GI History: Denies: Hx Gall Bladder Disease, Hx Gastrointestinal Bleed, Hx Ulcer, Hx Urosepsis History: Denies: Hx Dialysis, Hx Kidney Stones, Hx Renal Disease Musculoskeletal History: Reports: Hx Orthopedic Injury - Left Foot, Other Musculoskeletal History Sensory History: Denies: Hx Contacts or Glasses, Hx Hearing Aid Opthamlomology History: Denies: Hx Contacts or Glasses Neurological History: Denies: Hx Dementia, Hx Migraine, Hx Seizures, Hx Transient Ischemic Attacks (TIA) Psychiatric History: Reports: Hx Anxiety, Hx Eating Disorder - used to make self throw up alot - 2008, Hx Depression, Hx Community Mental Health Tx, Hx Schizophrenia, Hx Bipolar Disorder Denies: Hx Panic Disorder, Hx of Violent Episodes Against Others - Surgical History Surgery Procedure, Year, and Place: LEFT FOOT LESION REMOVED Hx Anesthesia Reactions: No Infectious Disease History: No Infectious Disease History: Denies: Hx Clostridium Difficile, Hx Hepatitis, Hx Human Immunodeficiency Virus (HIV), Hx of Known/Suspected MRSA, Hx Shingles, Hx Tuberculosis, Hx Known/ Suspected VRE, Hx Known/Suspected VRSA, History Other Infectious Disease, Traveled Outside the [place] in Last 30 Days - Family History Known Family History: Positive: Hypertension Negative: Cardiac Disease - Social History Alcohol Use: Occasionally Alcohol Amount: HX ALCOHOLIC Substance Use Type: Reports: Marijuana Smoking Status (MU): Current Every Day Smoker Type: Smokeless Tobacco Amount Used/How Often: DOESN'T KEEP COUNT; ROLLS HIS OWN Length of Time of Smoking/Using Tobacco: 5 years Have You Smoked in the Last Year: Yes Review of Systems Negative: Fever Cardiovascular: Negative Respiratory: Negative Gastrointestinal: Negative Genitourinary: Negative Musculoskeletal: Negative Psychological: Other - SI thoughts, paranoia Positive: Depressed. Negative: Other - SI plan, HI thoughts/plan All Other Systems Reviewed And Are Negative: Yes Physical Exam - Summary Physical Exam Summary: VITAL SIGNS: Reviewed. GENERAL: Patient is a well-developed and nourished male. Patient is not in any acute respiratory distress. HEAD AND FACE: No signs of trauma. No ecchymosis, hematomas or skull depressions. No sinus tenderness. EYES: PERRLA, EOMI x 2, No injected conjunctiva, no nystagmus. EARS: Hearing grossly intact. Ear canals and tympanic membranes are within normal limits. MOUTH: Oropharynx within normal limits. NECK: Supple, trachea is midline, no adenopathy, no JVD, no carotid bruit, no c- spine tenderness, neck with full ROM. CHEST: Symmetric, no tenderness at palpation LUNGS: Clear to auscultation bilaterally. No wheezing or crackles. CVS: Regular rate and rhythm, S1 and S2 present, no murmurs or gallops appreciated. ABDOMEN: Soft, non-tender. No signs of distention. No rebound no guarding, and no masses palpated. Bowel sounds are normal. EXTREMITIES: FROM in all major joints, no edema, no cyanosis or clubbing. NEURO: Alert and oriented x 3. No acute neurological deficits. Speech is normal and follows commands. SKIN: Dry and warm Triage Information Reviewed: Yes Vital Signs On Initial Exam: Initial Vitals Temp Pulse Resp BP Pulse Ox 98 F 130 19 125/93 97 02/28/18 14:48 02/28/18 14:48 02/28/18 14:48 02/28/18 14:48 02/28/18 14:48 Vital Signs Reviewed: Yes Diagnostics - Vital Signs Vital Signs Temp Pulse Resp BP Pulse Ox 02/28/18 14:48 98 F 130 19 125/93 97 - Laboratory Lab Results: Lab Results 02/28/18 02/28/18 Range/Units 15:17 15:17 WBC 9.2 (3.5-10.8) 10^3/ul RBC 5.16 (4.0-5.4) 10^6/ul Hgb 16.5 (14.0-18.0) g/dl Hct 48 (42-52) % MCV 92 (80-94) fL MCH 32 H (27-31) pg MCHC 35 (31-36) g/dl RDW 13 (10.5-15) % Plt Count 274 (150-450) 10^3/ul MPV 8.0 (7.4-10.4) um3 Neut % (Auto) 77.5 (38-83) % Lymph % (Auto) 12.2 L (25-47) % [place] % (Auto) 9.1 H (0-7) % Eos % (Auto) 0.7 (0-6) % Baso % (Auto) 0.5 (0-2) % Absolute Neuts (auto) 7.1 (1.5-7.7) 10^3/ul Absolute Lymphs (auto) 1.1 (1.0-4.8) 10^3/ul Absolute Monos (auto) 0.8 (0-0.8) 10^3/ul Absolute Eos (auto) 0.1 (0-0.6) 10^3/ul Absolute Basos (auto) 0 (0-0.2) 10^3/ul Absolute Nucleated RBC 0 10^3/ul Nucleated RBC % 0 Sodium 140 (139-145) mmol/L Potassium 4.1 (3.5-5.0) mmol/L Chloride 102 (101-111) mmol/L Carbon Dioxide 29 (22-32) mmol/L Anion Gap 9 (2-11) mmol/L BUN 10 (6-24) mg/dL Creatinine 1.08 (0.67-1.17) mg/dL Est GFR ( Amer) 104.0 (>60) Est GFR (Non-Af Amer) 80.8 (>60) BUN/Creatinine Ratio 9.3 (8-20) Glucose 93 (70-100) mg/dL Calcium 9.6 (8.6-10.3) mg/dL Total Bilirubin 0.50 (0.2-1.0) mg/dL AST 23 (13-39) U/L ALT 38 (7-52) U/L Alkaline Phosphatase 69 (34-104) U/L Total Protein 7.1 (6.4-8.9) g/dL Albumin 4.5 (3.2-5.2) g/dL Globulin 2.6 (2-4) g/dL Albumin/Globulin Ratio 1.7 (1-3) TSH Pending Salicylates Pending Acetaminophen Pending Serum Alcohol Pending Result Diagrams: 02/28/18 15:17 02/28/18 15:17 Lab Statement: Any lab studies that have been ordered have been reviewed, and results considered in the medical decision making process. Course/Dx - Course Assessment/Plan: Pt is a 28 y/o male, with hx of depression currently on Zyprexa , who presents with worsening depression and SI thoughts. Pt reports he has felt paranoid recently thinking people are following him. He also states "I don' t really want to be alive." Denies SI plan. He notes he has had these thoughts for 10-12 years now. Per mother, pt has been intermittently depressed. Test results without any significant abnormalities. Pt is medically cleared at 17: 32. He is awaiting mental health evaluation. Pt was evaluated by the mental health golf course superintendent and his case was reviewed by Dr. Russo, psychiatrist. Dr. Russo recommends [place] [facility] [place] Pt will be admitted with diagnosis of substance induced mood disorder. - Differential Dx/Clinical Impression Differential Diagnosis/HQI/PQRI: Positive: Anxiety, Depression, Suicidal Ideation Provider Diagnosis: Substance induced mood disorder Discharge - Sign-Out/Discharge Documenting (check all that apply): Discharge/Admit/Transfer - Admit - Discharge Plan Condition: Stable Disposition[place]ATR[place]AC[place] [place] Referrals: Stuart Gilman MD [Primary Care Provider] - - Billing Disposition and Condition Condition: STABLE Disposition: Psychiatric Facility [facility] [place] The documentation as recorded by the Sivakumar urrutia Angela accurately reflects the service I personally performed and the decisions made by me, Laron Wheatley MD.
[2018-02-28] MEDS ORDERED: Mouth Piece, Nicotine* 1 EACH CARTRIDGE INH SCH (21:08)
[2018-02-28] MEDS ORDERED: Acetaminophen TAB* 325 MG PO PRN (21:08)
[2018-02-28] MEDS ORDERED: Al Hydrox/Mg Hydrox/Simet LIQ* 30 ML UDC PO PRN (21:08)
[2018-02-28] MEDS ORDERED: lamoTRIgine TAB(*) 100 MG PO SCH (22:00)
[2018-02-28] MEDS: OLANzapine TAB* 10 MG PO SCH (22:19)
[2018-02-28] MEDS ORDERED: Mouth Piece, Nicotine* 1 EACH CARTRIDGE ONE (23:14)
[2018-02-28] MEDS: Nicotine Inhaler* 10 MG AMP INH PRN (23:20)
[2018-02-28] MEDS ORDERED: lamoTRIgine TAB(*) 100 MG ONE (23:46)
[2018-02-28] MEDS: VALERIAN ROOT 100 MG PO SCH (23:50)
[2018-03-01] MEDS: Nicotine Inhaler* 10 MG AMP INH PRN ×2 (10:33→17:22)
[2018-03-01] MEDS: Vitamin THERAPEUTIC TAB PO SCH (10:33)
[2018-03-01] MEDS: lamoTRIgine TAB(*) 100 MG PO SCH (10:33)
[2018-03-01] MEDS ORDERED: diPHENhydraMINE PO* 50 MG PO PRN ×2 (10:44→13:45)
[2018-03-01] MEDS ORDERED: LORazepam TAB(*) 1 MG PO PRN (10:45)
[2018-03-01] MEDS: hydrOXYzine HCL TAB* 50 MG PO PRN ×2 (12:08→21:13)
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
[2018-03-01] MEDS: OLANzapine TAB* 10 MG PO SCH (20:45)
[2018-03-01] MEDS: VALERIAN ROOT 100 MG PO SCH (20:50)
[2018-03-02] MEDS: lamoTRIgine TAB(*) 100 MG PO SCH (10:04)
[2018-03-02] MEDS: Vitamin THERAPEUTIC TAB PO SCH (10:04)
[2018-03-02] MEDS: Haloperidol TAB* 5 MG PO PRN (11:25)
[2018-03-02] MEDS: LORazepam TAB(*) 1 MG PO PRN (11:25)
[2018-03-02] MEDS: FLUoxetine CAP* 20 MG PO SCH (12:53)
[2018-03-02] MEDS: Nicotine Inhaler* 10 MG AMP INH PRN ×2 (12:54→16:33)
[2018-03-02] MEDS: hydrOXYzine HCL TAB* 50 MG PO PRN ×2 (12:54→20:10)
[2018-03-02] MEDS: Nicotine GUM* 2 MG PO PRN (16:33)
--- NOTE | 2018-03-02 16:35 | PN ---
Subjective - Subjective Date of Service: 03/02/18 Service Type: 58682 Hosp care 25 min moderate complexity Subjective: Spoke with Michele in the morning and he was quite tired and groggy. later in the day, although he was somewhat uninterested in speaking with me, he did relate that he hadn't thought about suicide all day today. I spoke with his mom, who states she goes to [facility] and is having some trouble dealing with Jas's illness. She is a nurse here at [facility] [employer] and works in the surgical unit. Objective - Appearance Appearance: Obese Dysmorphic Features: No Hygiene: Normal Grooming: Fairly Well Kept - Behavior Psychomotor Activities: Normal Exhibits Abnormal Movement: No - Attitude and Relatedness Attitude and Relatedness: Appropriate Eye Contact: Fair - Speech Quality: Unpressured Latencies: Normal Quantity: Terse - Mood Patient's Decription of Mood: "Okay" - Affect Observed Affect: Constricted Affect Consistent with: Dysphoria - Thought Process Patient's Thought Process: Coherent Thought Content: No Passive Wish, No Suicidal Planning, No Homicidal Ideation, No Paranoid Ideation - Sensorium Experiencing Hallucinations: No, Sensorium is Clear Type of Hallucinations: Visual: No, Auditory: No, Command: No - Level of Consciousness Level of Consciousness: Lethargic Orientation: Yes Intact, Yes Orientated to Time, Yes Orientated to Place, Yes Orientated to Person - Impulse Control Impulse Control: Impaired - Insight and Judgement Insight and Judgement: Impaired - Group Participation Particating in Group Activities: No - Medication Management Medication Management Adherence: Yes - Additional Observations Comments: Although Michele is cooperative, he is not very interested in having conversation. He appears to be taking care of himself. He does not discuss hallucinations. Suicidal ideation seems to have been reduced. He remains angry, however. He is cooperative and wants to get better. Assessment - Assessment Merits Inpatient Hospitalization: For Immediate Safety Inpatient DSM-V Dx: F25.0 Clinical Impression: Michele is a 28-year-old white male who is single. He was recently arrested for assault charges. He has a history of schizoaffective disorder. The hallucinations seem to be under control, but obsessive thoughts of suicide and homicide continue to haunt Michele. These thoughts frighten him and cause him great distress. Plan - Plan Treatment Plan: Name: JAS LAMBERT Birthdate: 1990 [id number] Continued Medication Management: Different Medication Medications: Current Medications Acetaminophen (Tylenol Tab*) 650 mg PO Q4H PRN PRN Reason: PAIN or TEMP > 101 F Al Hydrox/Mg Hydrox/Simethicone (Maalox Plus*) 30 ml PO Q4H PRN PRN Reason: INDIGESTION Device (Nicotine Mouth Piece*) 1 each INH .CARTRIDGE [facility] Diphenhydramine HCl (Benadryl Po*) 50 mg PO Q6H PRN PRN Reason: AGITATION Fluoxetine HCl (Prozac Cap*) 20 mg PO DAILY [facility] Last Admin: 03/02/18 12:53 Dose: 20 mg Haloperidol (Haldol Tab*) 5 mg PO Q6H PRN PRN Reason: AGITATION Last Admin: 03/02/18 11:25 Dose: 5 mg Hydroxyzine HCl (Atarax Tab*) 50 mg PO Q4H PRN PRN Reason: ANXIETY Last Admin: 03/02/18 12:54 Dose: 50 mg Lamotrigine (Lamictal Tab(*)) 100 mg PO 0900 [facility] Last Admin: 03/02/18 10:04 Dose: 100 mg Lorazepam (Ativan Tab(*)) 2 mg PO Q6H PRN PRN Reason: AGITATION Last Admin: 03/02/18 11:25 Dose: 2 mg Multivitamins (Theragran Tab*) 1 tab PO DAILY [facility] Last Admin: 03/02/18 10:04 Dose: 1 tab Nicotine (Nicotine Inhaler*) 10 mg INH Q2H PRN PRN Reason: CRAVING Last Admin: 03/02/18 12:54 Dose: 10 mg Nicotine Polacrilex (Nicotine Gum*) 2 mg PO Q2H PRN PRN Reason: CRAVING Valerian Root 100 Mg 1 dose PO 2100 [facility] Last Admin: 03/01/18 20:50 Dose: Not Given Olanzapine (Zyprexa Tab*) 20 mg PO 2100 [facility] Last Admin: 03/01/18 20:45 Dose: 20 mg Olanzapine (Zyprexa Tab*) 10 mg PO BEDTIME [facility] - Discharge Plan Discharge Plan: Outpatient Follow Up Outpatient Program: [facility] Additional Comments: Michele agreed to increase his medications: increase Zyprexa to 30 mg, increase lamictal to 200 mg, and begin Prozac at 20 mg with an intent to go higher ( perhaps 80, although that would be difficult to accomplish fully during inpatient stay due to time constraints).
[2018-03-02] MEDS: OLANzapine TAB* 10 MG PO SCH ×2 (20:10)
[2018-03-02] MEDS: VALERIAN ROOT 100 MG PO SCH (21:24)
[2018-03-03] MEDS: FLUoxetine CAP* 20 MG PO SCH (08:27)
[2018-03-03] MEDS: Vitamin THERAPEUTIC TAB PO SCH (08:27)
[2018-03-03] MEDS: lamoTRIgine TAB(*) 100 MG PO SCH ×2 (08:27→20:29)
[2018-03-03] MEDS: LORazepam TAB(*) 1 MG PO PRN ×2 (10:05→18:00)
[2018-03-03] MEDS: Haloperidol TAB* 5 MG PO PRN ×2 (10:05→18:00)
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
[2018-03-03] MEDS: Nicotine Inhaler* 10 MG AMP INH PRN ×2 (16:04→20:31)
[2018-03-03] MEDS: hydrOXYzine HCL TAB* 50 MG PO PRN (16:04)
--- NOTE | 2018-03-03 16:21 | PN ---
[facility]: Group Therapy Note - Service Type Service Type: 64150 Group Psychotherapy - Medication Education Group: Patient attended group and presented with flat affect that did not vary with discussion. Although responsive to direct prompts to respond to questions, patient did not engage in spontaneous conversation.
[2018-03-03] MEDS: Nicotine GUM* 2 MG PO PRN (17:40)
[2018-03-03] MEDS: OLANzapine TAB* 10 MG PO SCH ×2 (20:29)
[2018-03-03] MEDS: VALERIAN ROOT 100 MG PO SCH (21:27)
[2018-03-04] MEDS: Vitamin THERAPEUTIC TAB PO SCH (09:51)
[2018-03-04] MEDS: FLUoxetine CAP* 20 MG PO SCH (09:52)
[2018-03-04] MEDS: lamoTRIgine TAB(*) 100 MG PO SCH ×2 (09:52→20:26)
[2018-03-04] MEDS: LORazepam TAB(*) 1 MG PO PRN ×2 (10:28→17:47)
[2018-03-04] MEDS: Haloperidol TAB* 5 MG PO PRN ×2 (10:30→17:47)
[2018-03-04] MEDS: Nicotine GUM* 2 MG PO PRN ×2 (10:31→14:05)
[2018-03-04] MEDS: Nicotine Inhaler* 10 MG AMP INH PRN ×3 (10:31→17:51)
--- NOTE | 2018-03-04 15:46 | PN ---
Subjective - Subjective Date of Service: 03/04/18 Service Type: [id number] Hosp care 15 min low complexity Subjective: Jas is lying in bed when I talk to him. He states he's doing "really good, actually." He seems surprised. Negative thoughts are reduced and he appears to be less irritable. nevertheless, he is relieved to be left alone. Objective - Appearance Appearance: Obese Hygiene: Normal Grooming: Fairly Well Kept - Behavior Psychomotor Activities: Normal Exhibits Abnormal Movement: No - Attitude and Relatedness Attitude and Relatedness: Superficially Cooperative Eye Contact: Fair - Speech Quality: Unpressured Latencies: Normal Quantity: Terse - Mood Patient's Decription of Mood: "Good" - Affect Observed Affect: Constricted - Thought Process Patient's Thought Process: Coherent, Goal Directed Thought Content: No Passive Wish, No Suicidal Planning, No Homicidal Ideation, No Paranoid Ideation - Sensorium Experiencing Hallucinations: No, Sensorium is Clear Type of Hallucinations: Visual: No, Auditory: No, Command: No - Level of Consciousness Level of Consciousness: Alert Orientation: Yes Intact, Yes Orientated to Time, Yes Orientated to Place, Yes Orientated to Person - Impulse Control Impulse Control: Intact - Insight and Judgement Insight and Judgement: Fair - Group Participation Particating in Group Activities: Yes - Medication Management Medication Management Adherence: Yes - Additional Observations Comments: Happier today than yesterday. His mom, who I spoke with, agrees. Although violent thoughts may still be present, Michele seems more at ease. Assessment - Assessment Merits Inpatient Hospitalization: For Immediate Safety Inpatient DSM-V Dx: F25.0 Clinical Impression: Michele is a 28-year-old white male who is single. He was recently arrested for assault charges. He has a history of schizoaffective disorder. The hallucinations seem to be under control, but obsessive thoughts of suicide and homicide continue to haunt Michele. These thoughts frighten him and cause him great distress. Medications have been helpful so far. Thoughts of suicide and homicide are fading. We will continue with these medications and monitor Michele's thought processes for obsessive and psychotic thoughts. Plan - Plan Treatment Plan: Name: JAS LAMBERT Birthdate: 1990 [id number] Medications: Current Medications Acetaminophen (Tylenol Tab*) 650 mg PO Q4H PRN PRN Reason: PAIN or TEMP > 101 F Al Hydrox/Mg Hydrox/Simethicone (Maalox Plus*) 30 ml PO Q4H PRN PRN Reason: INDIGESTION Device (Nicotine Mouth Piece*) 1 each INH .CARTRIDGE [facility] Diphenhydramine HCl (Benadryl Po*) 50 mg PO Q6H PRN PRN Reason: AGITATION Last Admin: 03/03/18 10:05 Dose: 50 mg Fluoxetine HCl (Prozac Cap*) 20 mg PO DAILY [facility] Last Admin: 03/04/18 09:52 Dose: 20 mg Haloperidol (Haldol Tab*) 5 mg PO Q6H PRN PRN Reason: AGITATION Last Admin: 03/04/18 10:30 Dose: 5 mg Hydroxyzine HCl (Atarax Tab*) 50 mg PO Q4H PRN PRN Reason: ANXIETY Last Admin: 03/03/18 16:04 Dose: 50 mg Lamotrigine (Lamictal Tab(*)) 100 mg PO BID [facility] Last Admin: 03/04/18 09:52 Dose: 100 mg Lorazepam (Ativan Tab(*)) 2 mg PO Q6H PRN PRN Reason: AGITATION Last Admin: 03/04/18 10:28 Dose: 2 mg Multivitamins (Theragran Tab*) 1 tab PO DAILY [facility] Last Admin: 03/04/18 09:51 Dose: 1 tab Nicotine (Nicotine Inhaler*) 10 mg INH Q2H PRN PRN Reason: CRAVING Last Admin: 03/04/18 14:05 Dose: 10 mg Nicotine Polacrilex (Nicotine Gum*) 2 mg PO Q2H PRN PRN Reason: CRAVING Last Admin: 03/04/18 14:05 Dose: 2 mg Valerian Root 100 Mg 1 dose PO 2100 [facility] Last Admin: 03/03/18 21:27 Dose: Not Given Olanzapine (Zyprexa Tab*) 20 mg PO 2100 [facility] Last Admin: 03/03/18 20:29 Dose: 20 mg Olanzapine (Zyprexa Tab*) 10 mg PO BEDTIME [facility] Last Admin: 03/03/18 20:29 Dose: 10 mg - Discharge Plan Outpatient Program: [facility] Additional Comments: Michele agreed to increase his medications: increase Zyprexa to 30 mg, increase lamictal to 200 mg, and begin Prozac at 20 mg with an intent to go higher ( perhaps 80, although that would be difficult to accomplish fully during inpatient stay due to time constraints). Michele has improved significantly, and much to his surprise, it would seem. He will continue to stay through the weekend and we will monitor him for improvements.
[2018-03-04] MEDS: OLANzapine TAB* 10 MG PO SCH ×2 (20:26→20:27)
[2018-03-04] MEDS: VALERIAN ROOT 100 MG PO SCH (20:26)
[2018-03-05] MEDS: hydrOXYzine HCL TAB* 50 MG PO PRN (00:01)
[2018-03-05] MEDS: Nicotine GUM* 2 MG PO PRN ×3 (00:02→15:31)
[2018-03-05] MEDS: LORazepam TAB(*) 1 MG PO PRN ×3 (00:52→18:24)
[2018-03-05] MEDS: Haloperidol TAB* 5 MG PO PRN ×3 (00:53→18:24)
[2018-03-05] MEDS: lamoTRIgine TAB(*) 100 MG PO SCH ×2 (11:46→20:57)
[2018-03-05] MEDS: Vitamin THERAPEUTIC TAB PO SCH (11:46)
[2018-03-05] MEDS: FLUoxetine CAP* 20 MG PO SCH (11:46)
[2018-03-05] MEDS: Nicotine Inhaler* 10 MG AMP INH PRN (11:47)
--- NOTE | 2018-03-05 15:40 | PN ---
Subjective - Subjective Date of Service: 03/05/18 Service Type: 11640 Hosp care 15 min low complexity Subjective: Laying in bed possibly taking a nap. Easily woke up and instantly reports that he was fine. Says he feels lot calmer and didn't have any violent thoughts. Also denies hallucinations or delusions. Per staff reports not a problem on the unit but stays to self. Objective - Appearance Appearance: Healthy Appearing, Obese Dysmorphic Features: No Hygiene: Mal-odorous Grooming: Disheveled - Behavior Psychomotor Activities: Normal Exhibits Abnormal Movement: No - Attitude and Relatedness Attitude and Relatedness: Minimally Cooperative Eye Contact: Poor - Speech Quality: Unpressured Latencies: Normal Quantity: Appropriate - Mood Patient's Decription of Mood: "Fine" - Affect Observed Affect: Non-labile Affect Consistent with: Dysphoria - Thought Process Patient's Thought Process: Coherent, Goal Directed Thought Content: No Passive Wish, No Suicidal Planning, No Homicidal Ideation, No Paranoid Ideation - Sensorium Experiencing Hallucinations: No, Sensorium is Clear Type of Hallucinations: Visual: No, Auditory: No, Command: No - Level of Consciousness Level of Consciousness: Alert Orientation: Yes Intact, Yes Orientated to Time, Yes Orientated to Place, Yes Orientated to Person - Impulse Control Impulse Control: Tenuous - Insight and Judgement Insight and Judgement: Fair - Group Participation Particating in Group Activities: No - Medication Management Medication Management Adherence: Yes Assessment - Assessment Merits Inpatient Hospitalization: For Immediate Safety, For Stabilization, Pending Safe DC Plan Inpatient DSM-V Dx: F25.0 Plan - Plan Treatment Plan: Name: JAS LAMBERT Birthdate: 1990 [id number] Continued Medication Management: Continue Outpt Medication Medications: Current Medications Acetaminophen (Tylenol Tab*) 650 mg PO Q4H PRN PRN Reason: PAIN or TEMP > 101 F Al Hydrox/Mg Hydrox/Simethicone (Maalox Plus*) 30 ml PO Q4H PRN PRN Reason: INDIGESTION Device (Nicotine Mouth Piece*) 1 each INH .CARTRIDGE MIGUEL Diphenhydramine HCl (Benadryl Po*) 50 mg PO Q6H PRN PRN Reason: AGITATION Last Admin: 03/03/18 10:05 Dose: 50 mg Fluoxetine HCl (Prozac Cap*) [address] [facility] Last Admin: 03/05/18 11:46 Dose: 20 mg Haloperidol (Haldol Tab*) 5 mg PO Q6H PRN PRN Reason: AGITATION Last Admin: 03/05/18 11:45 Dose: 5 mg Hydroxyzine HCl (Atarax Tab*) 50 mg PO Q4H PRN PRN Reason: ANXIETY Last Admin: 03/05/18 00:01 Dose: 50 mg Lamotrigine (Lamictal Tab(*)) [address] [facility] Last Admin: 03/05/18 11:46 Dose: 100 mg Lorazepam (Ativan Tab(*)) 2 mg PO Q6H PRN PRN Reason: AGITATION Last Admin: 03/05/18 11:45 Dose: 2 mg Multivitamins (Theragran Tab*) 1 tab PO DAILY MIGUEL Last Admin: 03/05/18 11:46 Dose: 1 tab Nicotine (Nicotine Inhaler*) 10 mg INH Q2H PRN PRN Reason: CRAVING Last Admin: 03/05/18 11:47 Dose: 10 mg Nicotine Polacrilex (Nicotine Gum*) 2 mg PO Q2H PRN PRN Reason: CRAVING Last Admin: 03/05/18 15:31 Dose: 2 mg Valerian Root 100 Mg [address] [facility] Last Admin: 03/04/18 20:26 Dose: Not Given Olanzapine (Zyprexa Tab*) [address] [facility] Last Admin: 03/04/18 20:26 Dose: 20 mg Olanzapine (Zyprexa Tab*) 10 mg PO BEDTIME MIGUEL Last Admin: 03/04/18 20:27 Dose: 10 mg - Discharge Plan Discharge Plan: Outpatient Follow Up Outpatient Program: [facility]
[2018-03-05] MEDS: OLANzapine TAB* 10 MG PO SCH ×2 (20:52)
[2018-03-05] MEDS: VALERIAN ROOT 100 MG PO SCH (20:57)
[2018-03-06] MEDS: lamoTRIgine TAB(*) 100 MG PO SCH ×2 (09:13→20:48)
[2018-03-06] MEDS: FLUoxetine CAP* 20 MG PO SCH (09:13)
[2018-03-06] MEDS: LORazepam TAB(*) 1 MG PO PRN ×3 (09:14→21:24)
[2018-03-06] MEDS: Vitamin THERAPEUTIC TAB PO SCH (09:14)
[2018-03-06] MEDS: Haloperidol TAB* 5 MG PO PRN ×3 (09:14→21:25)
[2018-03-06] MEDS: Nicotine GUM* 2 MG PO PRN ×3 (09:15→18:43)
[2018-03-06] MEDS: Nicotine Inhaler* 10 MG AMP INH PRN ×2 (09:15→13:18)
[2018-03-06] MEDS ORDERED: Mouth Piece, Nicotine* 1 EACH CARTRIDGE ONE (09:17)
[2018-03-06] MEDS: hydrOXYzine HCL TAB* 50 MG PO PRN (11:02)
[2018-03-06] MEDS: OLANzapine TAB* 10 MG PO SCH ×2 (20:47→20:48)
[2018-03-06] MEDS: VALERIAN ROOT 100 MG PO SCH (22:02)
[2018-03-07] MEDS: hydrOXYzine HCL TAB* 50 MG PO PRN ×2 (03:46→12:47)
[2018-03-07 08:26] VITALS: BP 112/69
[2018-03-07] MEDS ORDERED: Gabapentin CAP(*) 300 MG PO PRN (08:55)
[2018-03-07] MEDS: Nicotine Inhaler* 10 MG AMP INH PRN ×3 (08:55→13:59)
[2018-03-07] MEDS: FLUoxetine CAP* 20 MG PO SCH (08:56)
[2018-03-07] MEDS: Haloperidol TAB* 5 MG PO PRN ×2 (08:56→13:58)
[2018-03-07] MEDS: Nicotine GUM* 2 MG PO PRN ×3 (08:56→13:59)
[2018-03-07] MEDS: lamoTRIgine TAB(*) 100 MG PO SCH (08:57)
[2018-03-07] MEDS: Vitamin THERAPEUTIC TAB PO SCH (08:57)
[2018-03-07] MEDS: LORazepam TAB(*) 1 MG PO PRN ×2 (08:57→13:58)
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
== END 2018-03-07 14:45 | disposition home or self-care (01) | DRG 885 ==
LOC: ED 14:34 → BSU 20:42
PROVIDERS: ADMIT Psychiatry & Neurology Psychiatry; ATTEND Psychiatry & Neurology Psychiatry
DX: F25.0 Schizoaffective disorder, bipolar type (principal); R45.851 Suicidal ideations; F17.210 Nicotine dependence, cigarettes, uncomplicated; R45.850 Homicidal ideations; F10.21 Alcohol dependence, in remission; F14.21 Cocaine dependence, in remission; F12.21 Cannabis dependence, in remission; Z79.899 Other long term (current) drug therapy; Z88.8 Allergy status to other drugs, medicaments and biological substances; Z81.8 Family history of other mental and behavioral disorders
CPT/HCPCS: 36415; 80053; 80061; 80307; 80320; 80329; 81003; 81015; 83036; 84443; 85025; 90853; 99222; 99231; 99232; 99238; 99285; A9270-GY; G0480

== ENCOUNTER 2018-03-10 15:03 | Inpatient (IN) | payer MEDICARE, MEDICAID ==
[2018-03-10 16:35] LABS: ABS Basophils 0 10^3/ul (0-0.2); ABS Eosinophils 0.1 10^3/ul (0-0.6); ABS Lymphocytes 1.9 10^3/ul (1.0-4.8); ABS Monocytes 0.7 10^3/ul (0-0.8); ABS Nucleated RBC 0 10^3/ul; Eosinophil % 0.8 % (0-6); Hematocrit 46 % (42-52); Hemoglobin 16.2 g/dl (14.0-18.0); Mean Corpuscular HGB Conc 35 g/dl (31-36); Mean Corpuscular Hemoglobin 32 pg (27-31); Mean Corpuscular Volume 91 fL (80-94); Mean Platelet Volume 7.6 um3 (7.4-10.4); Nucleated Red Blood Cells % 0.1; Platelet Count 272 10^3/ul (150-450); Red Blood Count 5.08 10^6/ul (4.00-5.40); Red Cell Distribution Width 12 % (10.5-15); White Blood Count 6.6 10^3/ul (3.5-10.8)
[2018-03-10 16:53] LABS: Urine Appearance Clear; Urine Blood Negative (Negative); Urine Color Yellow; Urine Ketones Negative (Negative); Urine Protein Negative (Negative); Urine Specific Gravity 1.013 (1.010-1.030); Urine Urobilinogen Negative (Negative)
[2018-03-10 17:00] LABS: EGFR Non-African American 65.3 (>60)
[2018-03-10] MEDS ORDERED: OLANzapine TAB* 10 MG PO SCH (21:00)
--- NOTE | 2018-03-10 21:28 | ED ---
Joe Kevin Stephanie, scribed for Laron Wheatley MD on 03/10/18 at 1619 . Psychiatric Complaint - HPI Summary HPI Summary: The pt is a 28 y/o M presenting to the ED with c/o SI and HI that began this morning upon waking up. Symptoms include sleep disturbance. Per mother, his ideas of HI and SI scare him. Per mother, the pt does not feel safe at home. - History Of Current Complaint Chief Complaint: EDMentalHealth Time Seen by Provider: 03/10/18 15:55 Hx Obtained From: Patient Onset/Duration: Sudden Onset, Lasting Hours, Still Present Timing: Constant Severity Currently: Mild Character: Depressed Aggravating Factor(s): Nothing Alleviating Factor(s): Nothing Associated Signs And Symptoms: Positive: Sleep Disturbance Has Suicidal: Reports: Thoughts Has Homicidal: Reports: Thoughts - Allergies/Home Medications Allergies/Adverse Reactions: Allergies Allergy/AdvReac Type Severity Reaction Status Date / Time doxycycline Allergy Severe Rash Verified 03/10/18 15:17 PMH/Surg Hx/FS Hx/Imm Hx Endocrine/Hematology History: Denies: Hx Anticoagulant Therapy, Hx Diabetes, Hx Thyroid Disease Cardiovascular History: Denies: Hx Congestive Heart Failure, Hx Deep Vein Thrombosis, Hx Hypertension , Hx Myocardial Infarction, Hx Pacemaker/ICD Respiratory History: Reports: Hx Seasonal Allergies Denies: Hx Asthma, Hx Chronic Obstructive Pulmonary Disease (COPD), Hx Lung Cancer, Hx Pneumonia, Hx Pulmonary Embolism GI History: Denies: Hx Gall Bladder Disease, Hx Gastrointestinal Bleed, Hx Ulcer, Hx Urosepsis History: Denies: Hx Dialysis, Hx Kidney Stones, Hx Renal Disease Musculoskeletal History: Reports: Hx Orthopedic Injury - Left Foot, Other Musculoskeletal History Sensory History: Denies: Hx Contacts or Glasses, Hx Hearing Aid Opthamlomology History: Denies: Hx Contacts or Glasses Neurological History: Denies: Hx Dementia, Hx Migraine, Hx Seizures, Hx Transient Ischemic Attacks (TIA) Psychiatric History: Reports: Hx Anxiety, Hx Eating Disorder - used to make self throw up alot - 2007, Hx Depression, Hx Inpatient Treatment - [facility] [place], Hx Community Mental Health Tx - [facility], Hx Schizophrenia, Hx Suicide Attempt, Hx of Violent Episodes Against Others - PENDING CHARGES, Hx Substance Abuse Denies: Hx Panic Disorder, Hx Bipolar Disorder - Surgical History Surgery Procedure, Year, and Place: LEFT FOOT LESION REMOVED Hx Anesthesia Reactions: No Infectious Disease History: No Infectious Disease History: Denies: Hx Clostridium Difficile, Hx Hepatitis, Hx Human Immunodeficiency Virus (HIV), Hx of Known/Suspected MRSA, Hx Shingles, Hx Tuberculosis, Hx Known/ Suspected VRE, Hx Known/Suspected VRSA, History Other Infectious Disease, Traveled Outside the [place] in Last 30 Days - Family History Known Family History: Positive: Hypertension Negative: Cardiac Disease - Social History Occupation: Unemployed Lives: With Family Alcohol Use: Occasionally Alcohol Amount: HX ALCOHOLIC Hx Substance Use: Yes Substance Use Type: Reports: Marijuana Hx Tobacco Use: Yes Smoking Status (MU): Current Every Day Smoker Type: Cigarettes, Smokeless Tobacco Amount Used/How Often: DOESN'T KEEP COUNT; ROLLS HIS OWN Length of Time of Smoking/Using Tobacco: 5 years Have You Smoked in the Last Year: Yes Review of Systems Negative: Fever Negative: Slurred Speech Positive: Other - SI/ HI All Other Systems Reviewed And Are Negative: Yes Physical Exam - Summary Physical Exam Summary: VITAL SIGNS: Reviewed. GENERAL: Patient is a well-developed and nourished MALE who is lying comfortable in the stretcher. Patient is not in any acute respiratory distress. HEAD AND FACE: No signs of trauma. No ecchymosis, hematomas or skull depressions. No sinus tenderness. EYES: PERRLA, EOMI x 2, No injected conjunctiva, no nystagmus. EARS: Hearing grossly intact. Ear canals and tympanic membranes are within normal limits. MOUTH: Oropharynx within normal limits. NECK: Supple, trachea is midline, no adenopathy, no JVD, no carotid bruit, no c- spine tenderness, neck with full ROM. CHEST: Symmetric, no tenderness at palpation LUNGS: Clear to auscultation bilaterally. No wheezing or crackles. CVS: Regular rate and rhythm, S1 and S2 present, no murmurs or gallops appreciated. ABDOMEN: Soft, non-tender. No signs of distention. No rebound no guarding, and no masses palpated. Bowel sounds are normal. EXTREMITIES: FROM in all major joints, no edema, no cyanosis or clubbing. NEURO: Alert and oriented x 3. No acute neurological deficits. Speech is normal and follows commands. SKIN: Dry and warm PSYCH: stoic behavior, flat affect Triage Information Reviewed: Yes Vital Signs On Initial Exam: Initial Vitals Temp Pulse Resp BP Pulse Ox 98.3 F 100 16 143/88 96 03/10/18 15:14 03/10/18 15:14 03/10/18 15:14 03/10/18 15:14 03/10/18 15:14 Vital Signs Reviewed: Yes Diagnostics - Vital Signs Vital Signs Temp Pulse Resp BP Pulse Ox 03/10/18 15:14 98.3 F 100 16 143/88 96 - Laboratory Lab Results: Lab Results 03/10/18 03/10/18 03/10/18 Range/Units 16:24 16:24 16:38 WBC 6.6 (3.5-10.8) 10^3/ul RBC 5.08 (4.00-5.40) 10^6/ul Hgb 16.2 (14.0-18.0) g/dl Hct 46 (42-52) % MCV 91 (80-94) fL MCH 32 H (27-31) pg MCHC 35 (31-36) g/dl RDW 12 (10.5-15) % Plt Count 272 (150-450) 10^3/ul MPV 7.6 (7.4-10.4) um3 Neut % (Auto) 59.7 (38-83) % Lymph % (Auto) 29.0 (25-47) % [place] % (Auto) 10.1 H (0-7) % Eos % (Auto) 0.8 (0-6) % Baso % (Auto) 0.4 (0-2) % Absolute Neuts (auto) 4.0 (1.5-7.7) 10^3/ul Absolute Lymphs (auto) 1.9 (1.0-4.8) 10^3/ul Absolute Monos (auto) 0.7 (0-0.8) 10^3/ul Absolute Eos (auto) 0.1 (0-0.6) 10^3/ul Absolute Basos (auto) 0 (0-0.2) 10^3/ul Absolute Nucleated RBC 0 10^3/ul Nucleated RBC % 0.1 Sodium 139 (135-145) mmol/L Potassium 4.8 (3.5-5.0) mmol/L Chloride 102 (101-111) mmol/L Carbon Dioxide 30 (22-32) mmol/L Anion Gap 7 (2-11) mmol/L BUN 10 (6-24) mg/dL Creatinine 1.30 H (0.67-1.17) mg/dL Est GFR ( Amer) 83.9 (>60) Est GFR (Non-Af Amer) 65.3 (>60) BUN/Creatinine Ratio 7.7 L (8-20) Glucose 94 (70-100) mg/dL Calcium 10.3 (8.6-10.3) mg/dL Total Bilirubin 0.30 (0.2-1.0) mg/dL AST 24 (13-39) U/L ALT 47 (7-52) U/L Alkaline Phosphatase 72 (34-104) U/L Total Protein 7.1 (6.4-8.9) g/dL Albumin 4.6 (3.2-5.2) g/dL Globulin 2.5 (2-4) g/dL Albumin/Globulin Ratio 1.8 (1-3) TSH 0.64 (0.34-5.60) mcIU/mL Urine Color Yellow Urine Appearance Clear Urine pH 6.0 (5-9) Ur Specific [place] 1.013 (1.010-1.030) Urine Protein Negative (Negative) Urine Ketones Negative (Negative) Urine Blood Negative (Negative) Urine Nitrate Negative (Negative) Urine Bilirubin Negative (Negative) Urine Urobilinogen Negative (Negative) Ur Leukocyte Esterase Negative (Negative) Urine Glucose Negative (Negative) Salicylates < 2.50 (<30) mg/dL Urine Opiates Screen (None Detect) Acetaminophen < 15 mcg/mL Ur Barbiturates Screen (None Detect) Ur Phencyclidine Scrn (None Detect) Ur Amphetamines Screen (None Detect) U Benzodiazepines Scrn (None Detect) Urine Cocaine Screen (None Detect) U Cannabinoids Screen (None Detect) Serum Alcohol < 10 (<10) mg/dL 03/10/18 Range/Units 16:38 WBC (3.5-10.8) 10^3/ul RBC (4.00-5.40) 10^6/ul Hgb (14.0-18.0) g/dl Hct (42-52) % MCV (80-94) fL MCH (27-31) pg MCHC (31-36) g/dl RDW (10.5-15) % Plt Count (150-450) 10^3/ul MPV (7.4-10.4) um3 Neut % (Auto) (38-83) % Lymph % (Auto) (25-47) % [place] % (Auto) (0-7) % Eos % (Auto) (0-6) % Baso % (Auto) (0-2) % Absolute Neuts (auto) (1.5-7.7) 10^3/ul Absolute Lymphs (auto) (1.0-4.8) 10^3/ul Absolute Monos (auto) (0-0.8) 10^3/ul Absolute Eos (auto) (0-0.6) 10^3/ul Absolute Basos (auto) (0-0.2) 10^3/ul Absolute Nucleated RBC 10^3/ul Nucleated RBC % Sodium (135-145) mmol/L Potassium (3.5-5.0) mmol/L Chloride (101-111) mmol/L Carbon Dioxide (22-32) mmol/L Anion Gap (2-11) mmol/L BUN (6-24) mg/dL Creatinine (0.67-1.17) mg/dL Est GFR ( Amer) (>60) Est GFR (Non-Af Amer) (>60) BUN/Creatinine Ratio (8-20) Glucose (70-100) mg/dL Calcium (8.6-10.3) mg/dL Total Bilirubin (0.2-1.0) mg/dL AST (13-39) U/L ALT (7-52) U/L Alkaline Phosphatase (34-104) U/L Total Protein (6.4-8.9) g/dL Albumin (3.2-5.2) g/dL Globulin (2-4) g/dL Albumin/Globulin Ratio (1-3) TSH (0.34-5.60) mcIU/mL Urine Color Urine Appearance Urine pH (5-9) Ur Specific [place] (1.010-1.030) Urine Protein (Negative) Urine Ketones (Negative) Urine Blood (Negative) Urine Nitrate (Negative) Urine Bilirubin (Negative) Urine Urobilinogen (Negative) Ur Leukocyte Esterase (Negative) Urine Glucose (Negative) Salicylates (<30) mg/dL Urine Opiates Screen None detected (None Detect) Acetaminophen mcg/mL Ur Barbiturates Screen None detected (None Detect) Ur Phencyclidine Scrn None detected (None Detect) Ur Amphetamines Screen None detected (None Detect) U Benzodiazepines Scrn None detected (None Detect) Urine Cocaine Screen None detected (None Detect) U Cannabinoids Screen None detected (None Detect) Serum Alcohol (<10) mg/dL Result Diagrams: 03/10/18 16:24 03/10/18 16:24 Lab Statement: Any lab studies that have been ordered have been reviewed, and results considered in the medical decision making process. Course/Dx - Course Assessment/Plan: Blood work w/o a significant abnormality. She is medically cleared. She is awaiting for a MHE. Patient is hemodynamically stable and A+O x 3. Patient will be signed out to Dr. Brand at shift change - Differential Dx/Clinical Impression Differential Diagnosis/HQI/PQRI: Positive: Depression, Suicidal Ideation Provider Diagnosis: Depression Discharge - Sign-Out/Discharge Documenting (check all that apply): Sign-Out Patient Signing out patient TO: Sanya Brand - Discharge Plan Referrals: Stuart Gilman MD [Primary Care Provider] - The documentation as recorded by the Joe urrutia Stephanie accurately reflects the service I personally performed and the decisions made by , Laron Wheatley MD.
[2018-03-10] MEDS: lamoTRIgine TAB(*) 100 MG PO SCH (21:38)
--- NOTE | 2018-03-11 08:12 | PN ---
ED Flex Patient Progress Note Subjective: This is a 28 year-old M who is pending psychiatric evaluation secondary to ____ _SI/HI . He additionally reports a sleep disorder. Pt offers no complaints at this time. Objective: Vitals: Most recent vital signs documented below. Pt was resting upon entrance to room - wakes easily. General NAD, Alert and oriented x3. Heart: rrr S1/S2 Lungs: CTA BREATHING EASILY AB: + BS, SOFT, nttp psych: flat affect Assessment: SI/HI Plan: Pending psychiatric eval. will follow up daily _while in ED____. Vital Signs Temp Pulse Resp BP Pulse Ox 97.9 F 72 16 116/60 95 03/11/18 08:06 03/11/18 08:06 03/11/18 08:06 03/11/18 08:06 03/11/18 08:06 Lab Results - Entire Visit 03/10/18 03/10/18 03/10/18 16:38 16:38 16:24 WBC RBC Hgb Hct MCV MCH MCHC RDW Plt Count MPV Neut % (Auto) Lymph % (Auto) [place] % (Auto) Eos % (Auto) Baso % (Auto) Absolute Neuts (auto) Absolute Lymphs (auto) Absolute Monos (auto) Absolute Eos (auto) Absolute Basos (auto) Absolute Nucleated RBC Nucleated RBC % Sodium 139 Potassium 4.8 Chloride 102 Carbon Dioxide 30 Anion Gap 7 BUN 10 Creatinine 1.30 H Est GFR ( Amer) 83.9 Est GFR (Non-Af Amer) 65.3 BUN/Creatinine Ratio 7.7 L Glucose 94 Calcium 10.3 Total Bilirubin 0.30 AST 24 ALT 47 Alkaline Phosphatase 72 Total Protein 7.1 Albumin 4.6 Globulin 2.5 Albumin/Globulin Ratio 1.8 TSH 0.64 Urine Color Yellow Urine Appearance Clear Urine pH 6.0 Ur Specific [place] 1.013 Urine Protein Negative Urine Ketones Negative Urine Blood Negative Urine Nitrate Negative Urine Bilirubin Negative Urine Urobilinogen Negative Ur Leukocyte Esterase Negative Urine Glucose Negative Salicylates < 2.50 Urine Opiates Screen None detected Acetaminophen < 15 Ur Barbiturates Screen None detected Ur Phencyclidine Scrn None detected Ur Amphetamines Screen None detected U Benzodiazepines Scrn None detected Urine Cocaine Screen None detected U Cannabinoids Screen None detected Serum Alcohol < 10 03/10/18 16:24 WBC 6.6 RBC 5.08 Hgb 16.2 Hct 46 MCV 91 MCH 32 H MCHC 35 RDW 12 Plt Count 272 MPV 7.6 Neut % (Auto) 59.7 Lymph % (Auto) 29.0 [place] % (Auto) 10.1 H Eos % (Auto) 0.8 Baso % (Auto) 0.4 Absolute Neuts (auto) 4.0 Absolute Lymphs (auto) 1.9 Absolute Monos (auto) 0.7 Absolute Eos (auto) 0.1 Absolute Basos (auto) 0 Absolute Nucleated RBC 0 Nucleated RBC % 0.1 Sodium Potassium Chloride Carbon Dioxide Anion Gap BUN Creatinine Est GFR ( Amer) Est GFR (Non-Af Amer) BUN/Creatinine Ratio Glucose Calcium Total Bilirubin AST ALT Alkaline Phosphatase Total Protein Albumin Globulin Albumin/Globulin Ratio TSH Urine Color Urine Appearance Urine pH Ur Specific [place] Urine Protein Urine Ketones Urine Blood Urine Nitrate Urine Bilirubin Urine Urobilinogen Ur Leukocyte Esterase Urine Glucose Salicylates Urine Opiates Screen Acetaminophen Ur Barbiturates Screen Ur Phencyclidine Scrn Ur Amphetamines Screen U Benzodiazepines Scrn Urine Cocaine Screen U Cannabinoids Screen Serum Alcohol
[2018-03-11] MEDS: lamoTRIgine TAB(*) 100 MG PO SCH ×2 (08:23→21:00)
[2018-03-11] MEDS ORDERED: FLUoxetine CAP* 20 MG PO SCH (09:00)
--- NOTE | 2018-03-11 10:15 | ED ---
IJoe Stephanie, scribed for Tal Ignacio MD on 03/11/18 at 0659 . Progress - Progress Note Progress Note: This pt is a sign out from Dr. Brand at shift change pending MHE. - Consult/PCP Time Called: 16:00 Course/Dx - Course Course Of Treatment: The pt is an involuntary comission. - Diagnoses Provider Diagnoses: Depression, Schizoaffective disorder, chronic condition, Suicidal ideation, Homicidal ideation Discharge - Sign-Out/Discharge Documenting (check all that apply): Discharge/Admit/Transfer - Admit, Receiving Sign-Out Receiving patient FROM: Sanya Brand - Pending MHE. - Discharge Plan Condition: Fair [place] [place] Disposition and Condition Condition: FAIR Disposition[place] Psych[place] [facility] [place] The documentation as recorded by the Joe urrutia Stephanie accurately reflects the service I personally performed and the decisions made by , Tal Ignacio MD.
[2018-03-11] MEDS: Haloperidol TAB* 5 MG PO PRN ×2 (12:54→19:23)
[2018-03-11] MEDS: LORazepam TAB(*) 1 MG PO PRN ×2 (12:55→19:23)
--- NOTE | 2018-03-11 19:36 | ED ---
Gus Kevin Elizabeth, scribed for Sanya Brand MD on 03/11/18 at 0448 . Progress - Progress Note Progress Note: Patient was signed out to Dr. Brand from Dr. Wheatley upon physician shift change pending mental health evaluation. - Consult/PCP Time Called: 16:00 Course/Dx - Course Course Of Treatment: Pt seen and evaluated by Psychiatry. Plan for inpatient Psych placement for further evaluation and treatment. - Diagnoses Provider Diagnoses: Depression Discharge - Sign-Out/Discharge Documenting (check all that apply): Sign-Out Patient Signing out patient TO: Tal Ignacio Receiving patient FROM: Sanya Brand - Discharge Plan Discharge Disposition Comment: sign out to Dr. Ignacio upon physician shift change pending MHE Referrals: Stuart Gilman MD [Primary Care Provider] - The documentation as recorded by the Gus urrutia Elizabeth accurately reflects the service I personally performed and the decisions made by Sunday jerez Omari A, MD.
[2018-03-11] MEDS: OLANzapine TAB*ODT* 10 MG TAB PO SCH (21:00)
--- NOTE | 2018-03-11 23:52 | HP ---
HISTORY AND PHYSICAL: DATE OF ADMISSION: 03/11/18 PROVIDER: Kathleen Toussaint NP in Psychiatry. SUPERVISING PHYSICIAN: Diaz Chávez MD.* (DICTATED BY KATHLEEN TOUSSAINT NP ) JUSTIFICATION FOR ADMISSION: The patient is in need of 24-hour supervision and care secondary to suicidal and homicidal ideation. CHIEF COMPLAINT: "I don't know what happened, I went to the clinic and they sent me here." HISTORY OF PRESENT ILLNESS: This is a readmission for Maximilian who left only 3 days ago. He went to the [facility] to visit his clinician and when he was there, he stated he was having suicidal and homicidal ideation. He was advised to come back to the hospital, brought by his mother and he was admitted this morning. Please refer to prior history and physical from 02/28/18 for further information. KATHLEEN TOUSSAINT NP [id number]/CPS #: [id number] [facility]
[2018-03-12] MEDS: OLANzapine TAB*ODT* 10 MG TAB PO SCH ×2 (08:44→20:30)
[2018-03-12] MEDS: Nicotine GUM* 2 MG PO PRN ×4 (08:44→19:10)
[2018-03-12] MEDS: FLUoxetine CAP* 20 MG PO SCH (08:44)
[2018-03-12] MEDS: lamoTRIgine TAB(*) 100 MG PO SCH ×2 (08:45→20:30)
[2018-03-12] MEDS: LORazepam TAB(*) 1 MG PO PRN ×2 (14:39→20:32)
--- NOTE | 2018-03-12 21:39 | PN ---
Subjective - Subjective Date of Service: 03/05/18 Service Type: 38516 Hosp care 15 min low complexity Subjective: Laying on the couch watching TV and shows little interest in conversation. Says he is ding all right. Denies psychosis, SI or HI. Tolerating meds well. Objective - Appearance Appearance: Obese Dysmorphic Features: No Hygiene: Normal Grooming: Disheveled - Behavior Psychomotor Activities: Abnormal-Decreased Exhibits Abnormal Movement: No - Attitude and Relatedness Attitude and Relatedness: Appropriate Eye Contact: Fair - Speech Quality: Unpressured Latencies: Normal Quantity: Appropriate - Mood Patient's Decription of Mood: "Fine" - Affect Observed Affect: Constricted Affect Consistent with: Dysphoria - Thought Process Patient's Thought Process: Coherent, Goal Directed Thought Content: No Passive Wish, No Suicidal Planning, No Homicidal Ideation, No Paranoid Ideation - Sensorium Experiencing Hallucinations: No, Sensorium is Clear Type of Hallucinations: Visual: No, Auditory: No, Command: No - Level of Consciousness Level of Consciousness: Alert Orientation: Yes Intact, Yes Orientated to Time, Yes Orientated to Place, Yes Orientated to Person - Impulse Control Impulse Control: Tenuous - Insight and Judgement Insight and Judgement: Poor - Group Participation Particating in Group Activities: Yes - Medication Management Medication Management Adherence: Yes Assessment - Assessment Merits Inpatient Hospitalization: For Immediate Safety, For Stabilization, Pending Safe DC Plan Clinical Impression: Still symptomatic. Plan - Plan Treatment Plan: Name: JAS LAMBERT Birthdate: 1990 [id number] Continued Medication Management: Continue Outpt Medication Medications: Current Medications Fluoxetine HCl (Prozac Cap*) 40 mg PO DAILY [facility] Last Admin: 03/12/18 08:44 Dose: 40 mg Haloperidol (Haldol Tab*) 5 mg PO Q6H PRN PRN Reason: AGITATION Last Admin: 03/11/18 19:23 Dose: 5 mg Lamotrigine (Lamictal Tab(*)) 100 mg PO BID [facility] Last Admin: 03/12/18 20:30 Dose: 100 mg Lorazepam (Ativan Tab(*)) 2 mg PO Q6H PRN PRN Reason: AGITATION Last Admin: 03/12/18 20:32 Dose: 2 mg Nicotine Polacrilex (Nicotine Gum*) 2 mg PO Q2H PRN PRN Reason: CRAVINGS Last Admin: 03/12/18 19:10 Dose: 2 mg Olanzapine (Zyprexa *Odt*) 20 mg PO BEDTIME [facility] Last Admin: 03/12/18 20:30 Dose: 20 mg Olanzapine (Zyprexa *Odt*) 10 mg PO DAILY [facility] Last Admin: 03/12/18 08:44 Dose: 10 mg - Discharge Plan Discharge Plan: Outpatient Follow Up Outpatient Program: [facility]
[2018-03-13] MEDS: Nicotine GUM* 2 MG PO PRN ×4 (09:37→21:24)
[2018-03-13] MEDS: lamoTRIgine TAB(*) 100 MG PO SCH ×2 (09:37→20:08)
[2018-03-13] MEDS: FLUoxetine CAP* 20 MG PO SCH (09:37)
[2018-03-13] MEDS: OLANzapine TAB*ODT* 10 MG TAB PO SCH ×2 (09:37→20:08)
[2018-03-13] MEDS: Nicotine Inhaler* 10 MG AMP INH PRN ×2 (11:54→17:32)
[2018-03-13] MEDS ORDERED: Mouth Piece, Nicotine* 1 EACH CARTRIDGE ONE (11:54)
[2018-03-13] MEDS: Haloperidol TAB* 5 MG PO PRN (11:58)
[2018-03-13] MEDS: LORazepam TAB(*) 1 MG PO PRN ×2 (11:58→20:08)
[2018-03-14] MEDS: Nicotine GUM* 2 MG PO PRN ×3 (10:19→21:04)
[2018-03-14] MEDS: lamoTRIgine TAB(*) 100 MG PO SCH ×2 (10:19→21:05)
[2018-03-14] MEDS: OLANzapine TAB*ODT* 10 MG TAB PO SCH ×2 (10:19→21:05)
[2018-03-14] MEDS: FLUoxetine CAP* 20 MG PO SCH (10:19)
[2018-03-14] MEDS: LORazepam TAB(*) 1 MG PO PRN ×2 (10:20→15:44)
[2018-03-14] MEDS: Haloperidol TAB* 5 MG PO PRN (15:44)
[2018-03-14] MEDS: Nicotine Inhaler* 10 MG AMP INH PRN ×2 (15:44→21:04)
--- NOTE | 2018-03-14 16:06 | PN ---
Subjective - Subjective Date of Service: 03/14/18 Service Type: 59620 Hosp care 15 min low complexity Subjective: Michele slept much of the day and endorsed being tired at this time. He says it isn 't really a bother to him. Michele states he would prefer not to go to [place]. We discussed that the homicidal thoughts are really problematic and troubling and that we would see what tomorrow brings and discuss further at that time. Objective - Appearance Appearance: Well Developed/Nourished, Obese Dysmorphic Features: No Hygiene: Normal Grooming: Disheveled - Behavior Psychomotor Activities: Normal Exhibits Abnormal Movement: No - Attitude and Relatedness Attitude and Relatedness: Superficially Cooperative Eye Contact: Fair - Speech Quality: Unpressured Latencies: Normal Quantity: Terse - Mood Patient's Decription of Mood: "Okay" - Affect Observed Affect: Depressed Affect Consistent with: Dysphoria - Thought Process Patient's Thought Process: Coherent Thought Content: Yes Homicidal Ideation, No Passive Wish, No Suicidal Planning, No Paranoid Ideation - Sensorium Experiencing Hallucinations: No, Sensorium is Clear Type of Hallucinations: Visual: No, Auditory: No, Command: No - Level of Consciousness Level of Consciousness: Alert Orientation: Yes Intact, Yes Orientated to Time, Yes Orientated to Place, Yes Orientated to Person - Impulse Control Impulse Control: Impaired - Insight and Judgement Insight and Judgement: Fair - Group Participation Particating in Group Activities: Yes - Medication Management Medication Management Adherence: Yes - Additional Observations Comments: Michele is participating in groups and taking medications. He is adherent to unit policies. He is at least superficially cooperative and may be more so, but his affect is flattened and he is difficult to read and he doesn't offer much explanation of how he is feeling. Assessment - Assessment Merits Inpatient Hospitalization: For Immediate Safety Inpatient DSM-V Dx: F25.0 Clinical Impression: Michele is experiencing violent/homicidal ideation. On the surface, he appears calm and in control. He does not show good insight into the potential he has for violence, however. Plan - Plan Treatment Plan: Name: JAS LAMBERT Birthdate: 1990 [id number] continue medication. Begin plan to send to [facility]. Medications: Current Medications Fluoxetine HCl (Prozac Cap*) 40 mg PO DAILY [facility] Last Admin: 03/14/18 10:19 Dose: 40 mg Fluoxetine HCl (Prozac Cap*) 20 mg PO 2100 [facility] Haloperidol (Haldol Tab*) 5 mg PO Q6H PRN PRN Reason: AGITATION Last Admin: 03/14/18 15:44 Dose: 5 mg Lamotrigine (Lamictal Tab(*)) 100 mg PO BID [facility] Last Admin: 03/14/18 10:19 Dose: 100 mg Lorazepam (Ativan Tab(*)) 2 mg PO Q6H PRN PRN Reason: AGITATION Last Admin: 03/14/18 15:44 Dose: 2 mg Nicotine (Nicotine Inhaler*) 10 mg INH Q2H PRN PRN Reason: CRAVINGS Last Admin: 03/14/18 15:44 Dose: 10 mg Nicotine Polacrilex (Nicotine Gum*) 2 mg PO Q2H PRN PRN Reason: CRAVINGS Last Admin: 03/14/18 15:44 Dose: 2 mg Olanzapine (Zyprexa *Odt*) 20 mg PO BEDTIME [facility] Last Admin: 03/13/18 20:08 Dose: 20 mg Olanzapine (Zyprexa *Odt*) 10 mg PO DAILY [facility] Last Admin: 03/14/18 10:19 Dose: 10 mg - Discharge Plan Discharge Plan: Consider Longer Term Tx
[2018-03-15] MEDS: lamoTRIgine TAB(*) 100 MG PO SCH ×2 (08:08→21:25)
[2018-03-15] MEDS: OLANzapine TAB*ODT* 10 MG TAB PO SCH ×2 (08:08→21:25)
[2018-03-15] MEDS: FLUoxetine CAP* 20 MG PO SCH ×2 (08:08→21:25)
[2018-03-15] MEDS: Nicotine Inhaler* 10 MG AMP INH PRN ×2 (11:02→19:12)
[2018-03-15] MEDS: Nicotine GUM* 2 MG PO PRN ×3 (11:02→19:13)
[2018-03-15] MEDS: LORazepam TAB(*) 1 MG PO PRN ×2 (11:18→19:53)
[2018-03-15] MEDS: Haloperidol TAB* 5 MG PO PRN ×2 (11:19→19:53)
--- NOTE | 2018-03-15 19:02 | PN ---
Subjective - Subjective Date of Service: 03/15/18 Service Type: 13607 Hosp care 15 min low complexity Subjective: Michele did not have much to say today. He did make a list of questions, which we discussed. He wanted to know if there was another agent he could be taking other than Zyprexa. We discussed Latuda, which he has already tried. He has stated in the past that he did best on 30 mg of Zyprexa and some Prozac, which is the avenue we are pursuing now. He wanted to know about going to the [facility], which was acknowledged to be in the plan, although it was also acknowledged that he didn't want to. We briefly discussed that he had the option of going to court if he didn't want to go. He is curious what will happen to his court date regarding charges he received earlier this month. He requested to get a pass to go to court. Objective - Appearance Appearance: Obese Dysmorphic Features: No Hygiene: Normal Grooming: Disheveled - Behavior Psychomotor Activities: Normal Exhibits Abnormal Movement: No - Attitude and Relatedness Attitude and Relatedness: Cooperative Eye Contact: Fair - Speech Quality: Unpressured Latencies: Short Quantity: Terse - Mood Patient's Decription of Mood: "Okay" - Affect Observed Affect: Constricted Affect Consistent with: Dysphoria - Thought Process Patient's Thought Process: Coherent, Goal Directed Thought Content: Yes Homicidal Ideation, No Passive Wish, No Suicidal Planning, No Paranoid Ideation - Sensorium Experiencing Hallucinations: No, Sensorium is Clear Type of Hallucinations: Visual: No, Auditory: No, Command: No - Level of Consciousness Level of Consciousness: Lethargic Orientation: No Intact, No Orientated to Time, No Orientated to Place, No Orientated to Person - Impulse Control Impulse Control: Tenuous - Insight and Judgement Insight and Judgement: Fair - Group Participation Particating in Group Activities: Yes - Medication Management Medication Management Adherence: Yes - Additional Observations Comments: Michele is participating in groups and taking medications. He is adherent to unit policies. He is at least superficially cooperative and may be more so, but his affect is flattened and he is difficult to read and he doesn't offer much explanation of how he is feeling. He is curious about going to state and would likely prefer not to. Assessment - Assessment Merits Inpatient Hospitalization: For Immediate Safety Inpatient DSM-V Dx: F25.0 Clinical Impression: Michele is experiencing violent/homicidal ideation. On the surface, he appears calm and in control. He does not show good insight into the potential he has for violence, however. On the unit, he has been cooperative. He has not been forthcoming about his thought content at this time. Plan - Plan Treatment Plan: Name: JAS LAMBERT Birthdate: 1990 [id number] continue medication. Begin plan to send to [facility]. Medications: Current Medications Fluoxetine HCl (Prozac Cap*) 40 mg PO DAILY [facility] Last Admin: 03/15/18 08:08 Dose: 40 mg Fluoxetine HCl (Prozac Cap*) 20 mg PO 2100 [facility] Haloperidol (Haldol Tab*) 5 mg PO Q6H PRN PRN Reason: AGITATION Last Admin: 03/15/18 11:19 Dose: 5 mg Lamotrigine (Lamictal Tab(*)) 100 mg PO BID [facility] Last Admin: 03/15/18 08:08 Dose: 100 mg Lorazepam (Ativan Tab(*)) 2 mg PO Q6H PRN PRN Reason: AGITATION Last Admin: 03/15/18 11:18 Dose: 2 mg Nicotine (Nicotine Inhaler*) 10 mg INH Q2H PRN PRN Reason: CRAVINGS Last Admin: 03/15/18 11:02 Dose: 10 mg Nicotine Polacrilex (Nicotine Gum*) 2 mg PO Q2H PRN PRN Reason: CRAVINGS Last Admin: 03/15/18 15:11 Dose: 2 mg Olanzapine (Zyprexa *Odt*) 20 mg PO BEDTIME [facility] Last Admin: 03/14/18 21:05 Dose: 20 mg Olanzapine (Zyprexa *Odt*) 10 mg PO DAILY [facility] Last Admin: 03/15/18 08:08 Dose: 10 mg
[2018-03-16] MEDS: FLUoxetine CAP* 20 MG PO SCH ×2 (09:49→22:10)
[2018-03-16] MEDS: OLANzapine TAB*ODT* 10 MG TAB PO SCH ×2 (09:49→22:10)
[2018-03-16] MEDS: lamoTRIgine TAB(*) 100 MG PO SCH ×2 (09:49→22:10)
--- NOTE | 2018-03-16 12:14 | PN ---
Subjective - Subjective Date of Service: 03/16/18 Service Type: 88847 Hosp care 15 min low complexity Subjective: Michele, Cassie Zabala, and I discuss [facility] referral. We talk about the opportunity to create a stabilized version of himself, as he had been stable for 3-4 years after the last state hospitalization. We also discussed referral to [facility] where he can have a more supportive environment. He is agreeable to going to [facility], although not enthusiastic. Objective - Appearance Appearance: Well Developed/Nourished, Obese Dysmorphic Features: No Hygiene: Normal Grooming: Disheveled - Behavior Psychomotor Activities: Normal Exhibits Abnormal Movement: No - Attitude and Relatedness Attitude and Relatedness: Cooperative Eye Contact: Fair - Speech Quality: Unpressured Latencies: Short Quantity: Terse - Mood Patient's Decription of Mood: "Okay" - Affect Observed Affect: Constricted Affect Consistent with: Dysphoria - Thought Process Patient's Thought Process: Coherent, Goal Directed Thought Content: Yes Homicidal Ideation, No Passive Wish, No Suicidal Planning, No Paranoid Ideation - Sensorium Experiencing Hallucinations: No, Sensorium is Clear Type of Hallucinations: Visual: No, Auditory: No, Command: No - Level of Consciousness Level of Consciousness: Lethargic Orientation: Yes Intact, Yes Orientated to Time, Yes Orientated to Place, Yes Orientated to Person - Impulse Control Impulse Control: Tenuous - Insight and Judgement Insight and Judgement: Fair - Group Participation Particating in Group Activities: Yes - Medication Management Medication Management Adherence: Yes - Additional Observations Comments: Michele is participating in groups and taking medications. He is adherent to unit policies. He is cooperative, but his affect is flattened and he is difficult to read. He is curious about going to [facility] and would at times prefer not to. Nevertheless, he is agreeable. Assessment - Assessment Merits Inpatient Hospitalization: For Immediate Safety Inpatient DSM-V Dx: F25.0 Clinical Impression: Michele is experiencing violent/homicidal ideation. On the surface, he appears calm and in control. He does not show good insight into the potential he has for violence, however. On the unit, he has been cooperative. He has been agreeable on the unit. Plan - Plan Treatment Plan: Name: JAS LAMBERT Birthdate: 1990 [id number] continue medication. Begin plan to send to [facility]. Continue with 2PC process. Medications: Current Medications Fluoxetine HCl (Prozac Cap*) 40 mg PO DAILY [facility] Last Admin: 03/16/18 09:49 Dose: 40 mg Fluoxetine HCl (Prozac Cap*) 20 mg PO 2100 [facility] Last Admin: 03/15/18 21:25 Dose: 20 mg Haloperidol (Haldol Tab*) 5 mg PO Q6H PRN PRN Reason: AGITATION Last Admin: 03/15/18 19:53 Dose: 5 mg Lamotrigine (Lamictal Tab(*)) 100 mg PO BID [facility] Last Admin: 03/16/18 09:49 Dose: 100 mg Lorazepam (Ativan Tab(*)) 2 mg PO Q6H PRN PRN Reason: AGITATION Last Admin: 03/15/18 19:53 Dose: 2 mg Nicotine (Nicotine Inhaler*) 10 mg INH Q2H PRN PRN Reason: CRAVINGS Last Admin: 03/15/18 19:12 Dose: 10 mg Nicotine Polacrilex (Nicotine Gum*) 2 mg PO Q2H PRN PRN Reason: CRAVINGS Last Admin: 03/15/18 19:13 Dose: 2 mg Olanzapine (Zyprexa *Odt*) 20 mg PO BEDTIME [facility] Last Admin: 03/15/18 21:25 Dose: 20 mg Olanzapine (Zyprexa *Odt*) 10 mg PO DAILY [facility] Last Admin: 03/16/18 09:49 Dose: 10 mg - Discharge Plan Discharge Plan: Consider Longer Term Tx
[2018-03-16] MEDS: Nicotine GUM* 2 MG PO PRN ×3 (12:35→23:47)
[2018-03-16] MEDS: Nicotine Inhaler* 10 MG AMP INH PRN ×2 (12:35→23:47)
[2018-03-16] MEDS: LORazepam TAB(*) 1 MG PO PRN ×2 (16:53→23:47)
[2018-03-16] MEDS: Haloperidol TAB* 5 MG PO PRN (23:47)
[2018-03-17] MEDS: OLANzapine TAB*ODT* 10 MG TAB PO SCH ×2 (08:38→20:55)
[2018-03-17] MEDS: lamoTRIgine TAB(*) 100 MG PO SCH ×2 (08:38→20:55)
[2018-03-17] MEDS: FLUoxetine CAP* 20 MG PO SCH ×2 (08:38→20:56)
[2018-03-17] MEDS ORDERED: Mouth Piece, Nicotine* 1 EACH CARTRIDGE ONE (08:40)
[2018-03-17] MEDS: Nicotine Inhaler* 10 MG AMP INH PRN ×2 (08:41→14:09)
[2018-03-17] MEDS: Haloperidol TAB* 5 MG PO PRN (09:09)
[2018-03-17] MEDS: LORazepam TAB(*) 1 MG PO PRN ×2 (09:09→22:03)
--- NOTE | 2018-03-17 11:39 | PN ---
[facility]: Group Therapy Note - Service Type Service Type: 53244 Group Psychotherapy - Cognitive Behavioral Group Therapy ( CBT):Patient attended CBT programming this morning and presented with flat affect that did not vary with discussion. Although responsive to direct prompts to respond to questions, patient did not engage in spontaneous conversation.
[2018-03-17] MEDS: CloZAPine TAB* 25 MG TAB PO SCH ×2 (14:07→20:56)
[2018-03-17] MEDS: Nicotine GUM* 2 MG PO PRN ×2 (14:08→22:03)
--- NOTE | 2018-03-17 21:51 | PN ---
Subjective - Subjective Date of Service: 03/17/18 Service Type: 42087 Hosp care 15 min low complexity Subjective: Michele today agreed to start clozapine. He agreed to the blood draws, although he was not excited about them. He was lying in bed with his nicotine inhaler hanging out of his mouth, which he did not remove to speak with me. He was interested in the change, however, as he has been asking for a new agent that might improve his state of mind. He does not endorse hallucinations, but thoughts of harming others remain. Objective - Appearance Appearance: Well Developed/Nourished, Obese Dysmorphic Features: No Hygiene: Normal Grooming: Disheveled - Behavior Psychomotor Activities: Normal Exhibits Abnormal Movement: No - Attitude and Relatedness Attitude and Relatedness: Cooperative Eye Contact: Fair - Speech Quality: Unpressured Latencies: Normal Quantity: Terse - Mood Patient's Decription of Mood: "Okay" - Affect Observed Affect: Constricted Affect Consistent with: Dysphoria - Thought Process Patient's Thought Process: Coherent, Goal Directed Thought Content: Yes Homicidal Ideation, Yes Paranoid Ideation, No Passive Wish, No Suicidal Planning - Sensorium Experiencing Hallucinations: No, Sensorium is Clear Type of Hallucinations: Visual: No, Auditory: No, Command: No - Level of Consciousness Level of Consciousness: Lethargic Orientation: No Intact, No Orientated to Time, No Orientated to Place, No Orientated to Person - Impulse Control Impulse Control: Impaired - Insight and Judgement Insight and Judgement: Fair - Group Participation Particating in Group Activities: Yes - Medication Management Medication Management Adherence: Yes - Additional Observations Comments: Michele is participating in groups and taking medications. He is adherent to unit policies. He is cooperative, but his affect is flattened and he is difficult to read. He is curious about going to state and would at times prefer not to. Nevertheless, he is agreeable. Assessment - Assessment Merits Inpatient Hospitalization: For Immediate Safety Inpatient DSM-V Dx: F25.0 Clinical Impression: Michele is experiencing violent/homicidal ideation. On the surface, he appears calm and in control. He does not show good insight into the potential he has for violence, however. On the unit, he has been cooperative. He has been agreeable on the unit. He is willing to try clozapine. Plan - Plan Treatment Plan: Name: JAS LAMBERT Birthdate: 1990 [id number] continue medication. Begin plan to send to [facility]. Continue with 2PC process. Start clozapine with collaboration from Pharmacy. Continued Medication Management: Different Medication Medications: Current Medications Clozapine (Clozapine Tab*) 12.5 mg PO BID [facility] Stop: 03/17/18 23:59 Last Admin: 03/17/18 20:56 Dose: 12.5 mg Clozapine (Clozapine Tab*) 25 mg PO BID [facility] Stop: 03/18/18 23:59 Fluoxetine HCl (Prozac Cap*) 40 mg PO DAILY [facility] Last Admin: 03/17/18 08:38 Dose: 40 mg Fluoxetine HCl (Prozac Cap*) 20 mg PO 2100 [facility] Last Admin: 03/17/18 20:56 Dose: 20 mg Haloperidol (Haldol Tab*) 5 mg PO Q6H PRN PRN Reason: AGITATION Last Admin: 03/17/18 09:09 Dose: 5 mg Lamotrigine (Lamictal Tab(*)) 100 mg PO BID [facility] Last Admin: 03/17/18 20:55 Dose: 100 mg Lorazepam (Ativan Tab(*)) 2 mg PO Q6H PRN PRN Reason: AGITATION Last Admin: 03/17/18 09:09 Dose: 2 mg Nicotine (Nicotine Inhaler*) 10 mg INH Q2H PRN PRN Reason: CRAVINGS Last Admin: 03/17/18 14:09 Dose: 10 mg Nicotine Polacrilex (Nicotine Gum*) 2 mg PO Q2H PRN PRN Reason: CRAVINGS Last Admin: 03/17/18 14:08 Dose: 2 mg Olanzapine (Zyprexa *Odt*) 20 mg PO BEDTIME [facility] Last Admin: 03/17/18 20:55 Dose: 20 mg Olanzapine (Zyprexa *Odt*) 10 mg PO DAILY [facility] Stop: 03/18/18 23:59 Last Admin: 03/17/18 08:38 Dose: 10 mg
[2018-03-18] MEDS: Haloperidol TAB* 5 MG PO PRN (09:45)
[2018-03-18] MEDS: OLANzapine TAB*ODT* 10 MG TAB PO SCH ×2 (09:45→20:40)
[2018-03-18] MEDS: LORazepam TAB(*) 1 MG PO PRN ×2 (09:45→17:22)
[2018-03-18] MEDS: CloZAPine TAB* 25 MG TAB PO SCH ×2 (09:46→20:40)
[2018-03-18] MEDS: FLUoxetine CAP* 20 MG PO SCH ×2 (09:46→20:40)
[2018-03-18] MEDS: lamoTRIgine TAB(*) 100 MG PO SCH ×2 (09:47→20:40)
[2018-03-18] MEDS: Nicotine GUM* 2 MG PO PRN ×3 (09:47→17:22)
[2018-03-18] MEDS: Nicotine Inhaler* 10 MG AMP INH PRN (15:17)
--- NOTE | 2018-03-18 15:17 | PN ---
Subjective - Subjective Date of Service: 03/18/18 Service Type: 96929 Hosp care 15 min low complexity Subjective: Michele is "excited" about going to [place]. He is motivated to get well. He doesn't mind the clozapine. He also is okay with Zyprexa eventually being discontinued. He maintains a sense of humor. Objective - Appearance Appearance: Well Developed/Nourished, Obese Dysmorphic Features: No Hygiene: Normal Grooming: Fairly Well Kept - Behavior Psychomotor Activities: Normal Exhibits Abnormal Movement: No - Attitude and Relatedness Attitude and Relatedness: Cooperative Eye Contact: Fair - Speech Quality: Unpressured Latencies: Normal Quantity: Terse - Mood Patient's Decription of Mood: "Fine" - Affect Observed Affect: Constricted Affect Consistent with: Dysphoria - Thought Process Patient's Thought Process: Coherent, Goal Directed Thought Content: Yes Homicidal Ideation, No Passive Wish, No Suicidal Planning, No Paranoid Ideation - Sensorium Experiencing Hallucinations: No, Sensorium is Clear Type of Hallucinations: Visual: No, Auditory: No, Command: No - Level of Consciousness Level of Consciousness: Alert Orientation: Yes Intact, Yes Orientated to Time, Yes Orientated to Place, Yes Orientated to Person - Impulse Control Impulse Control: Tenuous - Insight and Judgement Insight and Judgement: Good - Group Participation Particating in Group Activities: Yes - Medication Management Medication Management Adherence: Yes - Additional Observations Comments: Michele is participating in groups and taking medications. He is adherent to unit policies. He is cooperative, but his affect is flattened and he is difficult to read. He is excited about going to state. Assessment - Assessment Inpatient DSM-V Dx: F25.0 Clinical Impression: Michele is experiencing violent/homicidal ideation. On the surface, he appears calm and in control. He does not show good insight into the potential he has for violence, however. On the unit, he has been cooperative. He has been agreeable on the unit. He is willing to try clozapine and after one full day of taking it, he says, "it's nice." Plan - Plan Treatment Plan: Name: JAS LAMBERT Birthdate: 1990 [id number] continue medication. Begin plan to send to [facility]. Continue with 2PC process. Start clozapine with collaboration from Pharmacy. Continue clozapine. Reduce Zyprexa. Medications: Current Medications Clozapine (Clozapine Tab*) 25 mg PO BID [facility] Stop: 03/18/18 23:59 Last Admin: 03/18/18 09:46 Dose: 25 mg Fluoxetine HCl (Prozac Cap*) 40 mg PO DAILY [facility] Last Admin: 03/18/18 09:46 Dose: 40 mg Fluoxetine HCl (Prozac Cap*) 20 mg PO 2100 [facility] Last Admin: 03/17/18 20:56 Dose: 20 mg Haloperidol (Haldol Tab*) 5 mg PO Q6H PRN PRN Reason: AGITATION Last Admin: 03/18/18 09:45 Dose: 5 mg Lamotrigine (Lamictal Tab(*)) 100 mg PO BID [facility] Last Admin: 03/18/18 09:47 Dose: 100 mg Lorazepam (Ativan Tab(*)) 2 mg PO Q6H PRN PRN Reason: AGITATION Last Admin: 03/18/18 09:45 Dose: 2 mg Nicotine (Nicotine Inhaler*) 10 mg INH Q2H PRN PRN Reason: CRAVINGS Last Admin: 03/17/18 14:09 Dose: 10 mg Nicotine Polacrilex (Nicotine Gum*) 2 mg PO Q2H PRN PRN Reason: CRAVINGS Last Admin: 03/18/18 09:47 Dose: 2 mg Olanzapine (Zyprexa *Odt*) 20 mg PO BEDTIME [facility] Last Admin: 03/17/18 20:55 Dose: 20 mg Olanzapine (Zyprexa *Odt*) 10 mg PO DAILY [facility] Stop: 03/18/18 23:59 Last Admin: 03/18/18 09:45 Dose: 10 mg
[2018-03-19] MEDS: FLUoxetine CAP* 20 MG PO SCH ×2 (10:22→20:01)
[2018-03-19] MEDS: lamoTRIgine TAB(*) 100 MG PO SCH ×2 (10:22→20:01)
[2018-03-19] MEDS: CloZAPine TAB* 25 MG TAB PO SCH ×2 (10:22→20:02)
[2018-03-19] MEDS: LORazepam TAB(*) 1 MG PO PRN ×2 (11:10→17:14)
[2018-03-19] MEDS: Nicotine GUM* 2 MG PO PRN ×2 (13:05→16:07)
[2018-03-19] MEDS: OLANzapine TAB*ODT* 10 MG TAB PO SCH (20:02)
[2018-03-20] MEDS: CloZAPine TAB* 25 MG TAB PO SCH ×2 (09:14→20:04)
[2018-03-20] MEDS: lamoTRIgine TAB(*) 100 MG PO SCH ×2 (09:14→20:05)
[2018-03-20] MEDS: FLUoxetine CAP* 20 MG PO SCH ×2 (09:15→20:05)
[2018-03-20] MEDS: Nicotine Inhaler* 10 MG AMP INH PRN (09:48)
[2018-03-20] MEDS: Nicotine GUM* 2 MG PO PRN (09:48)
[2018-03-20] MEDS: LORazepam TAB(*) 1 MG PO PRN ×2 (11:36→17:59)
[2018-03-20] MEDS: Haloperidol TAB* 5 MG PO PRN (17:59)
[2018-03-20] MEDS: OLANzapine TAB*ODT* 10 MG TAB PO SCH (20:05)
[2018-03-21] MEDS: lamoTRIgine TAB(*) 100 MG PO SCH ×2 (09:53→20:08)
[2018-03-21] MEDS: FLUoxetine CAP* 20 MG PO SCH ×2 (09:53→20:08)
[2018-03-21] MEDS: CloZAPine TAB* 25 MG TAB PO SCH (09:53)
[2018-03-21] MEDS: LORazepam TAB(*) 1 MG PO PRN ×2 (09:54→16:37)
[2018-03-21] MEDS: Haloperidol TAB* 5 MG PO PRN (12:54)
--- NOTE | 2018-03-21 15:10 | PN ---
Subjective - Subjective Date of Service: 03/21/18 Service Type: 26705 Hosp care 15 min low complexity Subjective: Michele reports he is bored here. He is eager to go to [place], where he was accepted today. He wanted to know what day he would be going and I referred him to [facility]. Michele is getting along okay here for now. Objective - Appearance Appearance: Well Developed/Nourished, Obese Dysmorphic Features: No Hygiene: Normal Grooming: Fairly Well Kept - Behavior Psychomotor Activities: Normal Exhibits Abnormal Movement: No - Attitude and Relatedness Attitude and Relatedness: Cooperative Eye Contact: Good - Speech Quality: Unpressured Latencies: Normal Quantity: Appropriate - Mood Patient's Decription of Mood: "Okay" - Affect Observed Affect: Constricted Affect Consistent with: Dysphoria - Thought Process Patient's Thought Process: Coherent, Goal Directed Thought Content: Yes Homicidal Ideation, No Passive Wish, No Suicidal Planning, No Paranoid Ideation - Sensorium Experiencing Hallucinations: Yes Type of Hallucinations: Visual: No, Auditory: Yes, Command: No - Level of Consciousness Level of Consciousness: Alert Orientation: Yes Intact, Yes Orientated to Time, Yes Orientated to Place, Yes Orientated to Person - Impulse Control Impulse Control: Impaired - Insight and Judgement Insight and Judgement: Impaired - Group Participation Particating in Group Activities: Yes - Medication Management Medication Management Adherence: Yes - Additional Observations Comments: Michele is participating in groups and taking medications. He is adherent to unit policies. He is cooperative, but his affect is flattened and he is difficult to read. He is excited about going to state. He was recently reported to have been responding to internal stimuli (laughing to himself) but this was never verified and it is unclear what exactly was going on. Assessment - Assessment Merits Inpatient Hospitalization: For Immediate Safety, For Stabilization Inpatient DSM-V Dx: F25.0 Clinical Impression: Michele is experiencing violent/homicidal ideation. On the surface, he appears calm and in control. He does not show good insight into the potential he has for violence, however. On the unit, he has been cooperative. He has been agreeable on the unit. He is willing to try clozapine and after one week of taking it, he has no complaints. His Zyprexa is being decreased again today. Plan - Plan Treatment Plan: Name: JAS LAMBERT Birthdate: 1990 [id number] continue medication. Begin plan to send to [facility]. Continue with 2PC process. Start clozapine with collaboration from Pharmacy. Continue clozapine. Reduce Zyprexa. Medications: Current Medications Clozapine (Clozapine Tab*) 100 mg PO BEDTIME MIGUEL Clozapine (Clozapine Tab*) 50 mg PO QAM MIGUEL Fluoxetine HCl (Prozac Cap*) 40 mg PO DAILY MIGUEL Last Admin: 03/21/18 09:53 Dose: 40 mg Fluoxetine HCl (Prozac Cap*) 20 mg PO 2100 MIGUEL Last Admin: 03/20/18 20:05 Dose: 20 mg Haloperidol (Haldol Tab*) 5 mg PO Q6H PRN PRN Reason: AGITATION Last Admin: 03/21/18 12:54 Dose: 5 mg Lamotrigine (Lamictal Tab(*)) [address] [facility] Last Admin: 03/21/18 09:53 Dose: 100 mg Lorazepam (Ativan Tab(*)) 2 mg PO Q6H PRN PRN Reason: AGITATION Last Admin: 03/21/18 09:54 Dose: 2 mg Nicotine (Nicotine Inhaler*) 10 mg INH Q2H PRN PRN Reason: CRAVINGS Last Admin: 03/20/18 09:48 Dose: 10 mg Nicotine Polacrilex (Nicotine Gum*) 2 mg PO Q2H PRN PRN Reason: CRAVINGS Last Admin: 03/20/18 09:48 Dose: 2 mg Olanzapine (Zyprexa *Odt*) [address] [facility]
[2018-03-21 15:41] LABS: ABS Basophils 0 10^3/ul (0-0.2); ABS Eosinophils 0.1 10^3/ul (0-0.6); ABS Lymphocytes 1.8 10^3/ul (1.0-4.8); ABS Monocytes 0.6 10^3/ul (0-0.8); ABS Neutrophils 4.1 10^3/ul (1.5-7.7); ABS Nucleated RBC 0 10^3/ul; Eosinophil % 1.7 % (0-6); Hematocrit 44 % (42-52); Hemoglobin 15.7 g/dl (14.0-18.0); Lymphocyte % 26.5 % (25-47); Mean Corpuscular HGB Conc 36 g/dl (31-36); Mean Corpuscular Hemoglobin 33 pg (27-31); Mean Corpuscular Volume 91 fL (80-94); Mean Platelet Volume 7.3 um3 (7.4-10.4); Nucleated Red Blood Cells % 0.1; Platelet Count 269 10^3/ul (150-450); Red Blood Count 4.83 10^6/ul (4.00-5.40); Red Cell Distribution Width 12 % (10.5-15); White Blood Count 6.7 10^3/ul (3.5-10.8)
[2018-03-21] MEDS: OLANzapine TAB*ODT* 10 MG TAB PO SCH (20:09)
[2018-03-21] MEDS: CloZAPine TAB* 100 MG TAB PO SCH (20:09)
[2018-03-22] MEDS: CloZAPine TAB* 25 MG TAB PO SCH (08:26)
[2018-03-22] MEDS: lamoTRIgine TAB(*) 100 MG PO SCH ×2 (08:26→20:10)
[2018-03-22] MEDS: FLUoxetine CAP* 20 MG PO SCH ×2 (08:26→20:09)
[2018-03-22] MEDS: LORazepam TAB(*) 1 MG PO PRN ×3 (11:43→23:47)
[2018-03-22] MEDS: Haloperidol TAB* 5 MG PO PRN (12:20)
[2018-03-22] MEDS: CloZAPine TAB* 100 MG TAB PO SCH (20:09)
[2018-03-22] MEDS: OLANzapine TAB*ODT* 10 MG TAB PO SCH (20:11)
[2018-03-23] MEDS: Haloperidol TAB* 5 MG PO PRN ×2 (01:08→10:34)
[2018-03-23] MEDS: FLUoxetine CAP* 20 MG PO SCH (07:50)
[2018-03-23] MEDS: lamoTRIgine TAB(*) 100 MG PO SCH (07:50)
[2018-03-23] MEDS: CloZAPine TAB* 25 MG TAB PO SCH (07:50)
[2018-03-23] MEDS: LORazepam TAB(*) 1 MG PO PRN (09:27)
[2018-03-23 10:33] VITALS: BP 138/79
--- NOTE | 2018-03-23 16:21 | DS ---
DATE OF ADMISSION: 03/11/2018. DATE OF DISCHARGE: 03/23/2018. PROVIDER: Kathleen Toussaint NP in Psychiatry. SUPERVISING PHYSICIAN: Dr. Diaz Chávez * (dictated by Kathleen Toussaint NP). DIAGNOSES: AXIS I: Schizoaffective disorder, bipolar type. AXIS II: Deferred. CONDITION AT THE TIME OF DISCHARGE: Improved. Stable. Participatory in groups and somewhat social with peers. His family is agreeable, although sad about his discharge to [facility]. He has improved here psychiatrically. He tolerated his transition to Clozapine well. It is still in progress. He will be going to [facility]. MENTAL STATUS EXAM: At the time of discharge, the patient is calm and cooperative, and makes reasonably good eye contact. He is alert and oriented times three. His grooming is adequate. His speech pace is normal. His thought processes are logical. He is having homicidal ideations, but is not frankly psychotic or delusional. He denies auditory hallucinations, suicidal ideation, and visual hallucinations. His insight and judgment are fair. DISCHARGE INSTRUCTIONS TO THE PATIENT: A. Medications are going to be prescribed by the [facility] staff. B. Diet: Regular. C. Activities: As tolerated. Maximilian is a smoker and is currently using tobacco cessation products. There are no studies pending at the time of discharge. D. Follow-up care: He will be transferred by ambulance to [facility]. E. Substance use follow-up: Not indicated. HOSPITAL COURSE - PART A: Chief complaint: "I don't know what happened. I went to the clinic and they sent me here." This is a readmission for Maximilian who left only three days ago. He went to the [facility] to visit his clinician and when he was there, he stated he was having suicidal and homicidal ideation. He was advised to come back to the hospital, brought by his mother and he was admitted this morning. Please refer to prior history and physical from 02/28/2018 for further information. HOSPITAL COURSE - PART B: Psychiatric treatment rendered: The patient was admitted to the Adult Behavioral Health unit and placed on 15 minute checks for safety. Michele did well on the unit and went to groups. He interacted with peers well, but not in depth. He did tolerate med changes. Clozapine was started and the doses were increased and the doses of Zyprexa were slowly tapered down. He is on two antipsychotics, but the Zyprexa is scheduled to be stopped. He is improved over when he arrived, but we are unable to manage the homicidal ideation at this time. KATHLEEN TOUSSAINT, SAS DEVELOPER [id number]/[facility] #: [id number] [facility]ITAL[facility]ila
== END 2018-03-23 11:30 | disposition short-term general hospital (02) | DRG 885 ==
LOC: ED 15:03 → BSU 03-11 09:39
PROVIDERS: ADMIT Psychiatry & Neurology Psychiatry; ATTEND Psychiatry & Neurology Psychiatry
DX: F25.0 Schizoaffective disorder, bipolar type (principal); R45.851 Suicidal ideations; F17.210 Nicotine dependence, cigarettes, uncomplicated; R45.850 Homicidal ideations; F14.21 Cocaine dependence, in remission; F10.21 Alcohol dependence, in remission; Z81.8 Family history of other mental and behavioral disorders; Z82.49 Family history of ischemic heart disease and other diseases of the circulatory system; Z79.899 Other long term (current) drug therapy; Z88.8 Allergy status to other drugs, medicaments and biological substances
CPT/HCPCS: 36415; 80053; 80307; 80320; 80329; 81003; 82565; 84443; 85025; 90853; 93005; 99222; 99231; 99238; 99285; A9270-GY; G0480

== ENCOUNTER 2021-02-12 13:08 | Inpatient (IN) ==
[2021-02-12] MEDS ORDERED: Al Hydrox/Mg Hydrox/Simet LIQ 30 ML UDC PO PRN (14:08)
[2021-02-12 14:21] LABS: ABS Eosinophils 0.2 10^3/ul (0-0.6); ABS Lymphocytes 1.3 10^3/ul (1.0-4.8); ABS Monocytes 0.6 10^3/ul (0-0.8); ABS Neutrophils 1.9 10^3/ul (1.5-7.7); Eosinophil % 3.9 %; Hematocrit 41 % (42-52); Hemoglobin 14.2 g/dL (14.0-18.0); Lymphocyte % 32.7 %; Mean Corpuscular HGB Conc 35 g/dL (31-36); Mean Corpuscular Hemoglobin 32 pg (27-31); Mean Corpuscular Volume 91 fL (80-94); Mean Platelet Volume 8.5 fL (7.4-10.4); Nucleated Red Blood Cells % 0.3; Platelet Count 236 10^3/uL (150-450); Red Blood Count 4.47 10^6 /uL (4.18-5.48); Red Cell Distribution Width 13 % (10-15); White Blood Count 4.1 10^3/uL (3.5-10.8)
[2021-02-12 14:30] LABS: Albumin 4.6 g/dL (3.2-5.2); Anion Gap 7 mmol/L (2-11); Blood Urea Nitrogen 12 mg/dL (6-24); CO2 Carbon Dioxide 27 mmol/L (22-32); Calcium 10.2 mg/dL (8.6-10.3); Chloride 103 mmol/L (101-111); EGFR African American 111.9 (>60); EGFR Non-African American 92.5 (>60); Glucose 105 mg/dL (70-100); Potassium 3.9 mmol/L (3.5-5.0); Sodium 137 mmol/L (135-145); Total Protein 7.1 g/dL (6.4-8.9)
[2021-02-12 14:31] LABS: ALT 50 U/L (7-52); AST 27 U/L (13-39); Albumin/Globulin Ratio 1.8 (1-3); Alkaline Phosphatase 71 U/L (35-149); Globulin 2.5 g/dL (2-4)
[2021-02-12 14:32] LABS: Urine Appearance Clear; Urine Bilirubin Negative (Negative); Urine Blood 1+ (Negative); Urine Color Straw; Urine Glucose Negative (Negative); Urine Ketones Negative (Negative); Urine Nitrite Negative (Negative); Urine Protein Negative (Negative); Urine Specific Gravity 1.003 (1.002-1.030); Urine Urobilinogen Negative (Negative)
[2021-02-12 14:33] LABS: Urine Benzodiazepine Screen None Detected (None Detect); Urine Cannabinoids Screen None Detected (None Detect); Urine Opiates Screen None Detected (None Detect)
[2021-02-12 14:36] LABS: Urine Bacteria Absent (Absent); Urine Red Blood Cell Trace(0-2/hpf) (Absent); Urine White Blood Cell Absent (Absent)
[2021-02-12 14:40] LABS: Acetaminophen < 15 mcg/mL; Alcohol, S < 10 mg/dL (<10); Salicylate < 2.50 mg/dL (<30)
[2021-02-12 14:55] LABS: TSH Ultra Thyroid Stim Horm 2.86 mcIU/mL (0.34-5.60)
[2021-02-13] MEDS: Vitamin THERAPEUTIC TAB PO SCH (08:26)
[2021-02-13] MEDS: Nicotine PATCH 21 MG/24 HR PATCH TRANSDERM SCH (08:26)
[2021-02-13] MEDS: Nicotine GUM 4MG FRUIT FLAVOR PO PRN (20:06)
[2021-02-14 08:43] LABS: HDL Cholesterol 29.5 mg/dL
[2021-02-14] MEDS: Vitamin THERAPEUTIC TAB PO SCH (09:51)
[2021-02-14] MEDS: Nicotine PATCH 21 MG/24 HR PATCH TRANSDERM SCH (09:51)
[2021-02-14] MEDS: Nicotine GUM 4MG FRUIT FLAVOR PO PRN ×3 (11:12→18:20)
[2021-02-15] MEDS: Vitamin THERAPEUTIC TAB PO SCH (08:47)
[2021-02-15] MEDS: Nicotine PATCH 21 MG/24 HR PATCH TRANSDERM SCH (08:48)
[2021-02-15] MEDS: Nicotine GUM 4MG FRUIT FLAVOR PO PRN ×3 (13:46→20:11)
[2021-02-16] MEDS: Nicotine PATCH 21 MG/24 HR PATCH TRANSDERM SCH (09:23)
[2021-02-16] MEDS: Vitamin THERAPEUTIC TAB PO SCH (09:23)
[2021-02-16] MEDS: Nicotine GUM 4MG FRUIT FLAVOR PO PRN ×2 (09:26→11:37)
[2021-02-17] MEDS: Nicotine PATCH 21 MG/24 HR PATCH TRANSDERM SCH (09:15)
[2021-02-17] MEDS: Vitamin THERAPEUTIC TAB PO SCH (09:16)
[2021-02-17] MEDS: Nicotine GUM 4MG FRUIT FLAVOR PO PRN ×2 (18:01→20:57)
[2021-02-18] MEDS: Vitamin THERAPEUTIC TAB PO SCH (09:59)
[2021-02-18] MEDS: Nicotine PATCH 21 MG/24 HR PATCH TRANSDERM SCH (09:59)
[2021-02-18] MEDS: Nicotine GUM 4MG FRUIT FLAVOR PO PRN (14:56)
[2021-02-19] MEDS: Nicotine PATCH 21 MG/24 HR PATCH TRANSDERM SCH (11:02)
[2021-02-19] MEDS: Vitamin THERAPEUTIC TAB PO SCH (11:02)
[2021-02-20 07:50] VITALS: BP 119/76
[2021-02-20] MEDS: Nicotine PATCH 21 MG/24 HR PATCH TRANSDERM SCH (08:08)
[2021-02-20] MEDS: Vitamin THERAPEUTIC TAB PO SCH (08:09)
[2021-02-20] MEDS: Nicotine GUM 4MG FRUIT FLAVOR PO PRN (13:06)
== END 2021-02-20 13:50 | disposition home or self-care (01) | DRG 885 ==
LOC: ED 13:08 → BSU 14:08
PROVIDERS: ADMIT Psychiatry & Neurology Psychiatry; ATTEND Psychiatry & Neurology Psychiatry